=== PATIENT | female | born 1940 | race Caucasian/White ===

== ENCOUNTER 2017-04-09 03:26 | Observation (INO) | payer MEDICARE ==
[~2017-04-09] VITALS: Ht 170.2 cm; Wt 83.9 kg
[~2017-04-09 03:26] MED LIST: ASPIRIN81 M1 PO; CATAPRES0.3 MG PO; FLAGYL500 MG PO; FUROSEMIDE20 MG PO; KLOR-CON 1010 MEQ PO; LEVOTHYROXINE25 MCG PO; MELOXICAM15 MG PO; METOPROLOL SUC100 MG PO; OMEPRAZOLE20 MG PO; VYTORIN 10-201 EACH PO
[2017-04-09] MEDS ORDERED: ALBUTEROL SULF 0.083% NEB SOLN 3 ML NEB NEB STA (03:41)
[2017-04-09] MEDS ORDERED: IPRATROPIUM BROMIDE 0.02% 2.5 ML NEB NEB ONE (03:45)
[2017-04-09 04:09] LABS: BASOPHILS % 0.1 % (0.0-1.0); HEMATOCRIT 39.5 % (34.2-44.1); HEMOGLOBIN 13.8 g/dL (12.0-16.0); LYMPHOCYTES # (AUTO) 0.6 (1.0-3.2); LYMPHOCYTES % 6.5 % (18.0-39.1); MEAN CORPUSCULAR HEMOGLOBIN 30.7 pg (28-32); MEAN CORPUSCULAR HGB CONC 34.9 g/dL (31-35); MEAN CORPUSCULAR VOLUME 87.8 fL (81-99); MONOCYTES # (AUTO) 0.4 (0.2-0.8); MONOCYTES % 4.8 % (4.4-11.3); NEUTROPHILS # (AUTO) 7.6 (2.1-6.9); NEUTROPHILS % 87.8 % (38.7-80.0); PLATELET COUNT 192 x10e3/uL (140-360); RED CELL DISTRIBUTION WIDTH 12.4 % (11.7-14.4)
[2017-04-09 04:17] LABS: INR 0.94
[2017-04-09 04:18] LABS: PARTIAL THROMBOPLASTIN TIME 25.7 seconds (23.8-35.5)
[2017-04-09 04:27] LABS: ALBUMIN 3.3 g/dL (3.5-5.0); ALBUMIN/GLOBULIN RATIO 0.8 (0.8-2.0); ANION GAP 12.5 mmol/L (8-16); CALCIUM 9.5 mg/dL (8.4-10.2); CREATININE, SERUM 1.67 mg/dL (0.57-1.11); MAGNESIUM 1.5 MG/DL (1.3-2.1); POTASSIUM 3.5 mmol/L (3.5-5.1)
[2017-04-09 04:33] LABS: CREATINE KINASE MB 2.8 ng/mL (0.00-5.00); TROPONIN I 0.028 ng/mL (0-0.300)
--- NOTE | 2017-04-09 04:41 | Diagnostic Imaging Report ---
CHEST 2 VIEWS, Technique: CHEST 2 VIEWS Comparison: None Clinical history: Cough, congestion DISCUSSION: Heart/mediastinum: Normal heart size. Prominent central pulmonary arteries which can be seen with pulmonary arterial hypertension. Lungs: Linear right basilar atelectasis/scar. No consolidation or edema. Pleural spaces: No effusion or pneumothorax. IMPRESSION: No acute abnormality Signed by: Dr Manasa Issa MD on 04/09/2017 4:38 AM
[2017-04-09] MEDS ORDERED: METHYLPREDNISOLONE SOD SUCC 125 MG/2ML VIAL IV ONE (05:30)
[2017-04-09] MEDS ORDERED: HYDRALAZINE HCL25 MG PO (05:44)
[2017-04-09] MEDS ORDERED: VITAMIN D35000 UNI1 PO (05:44)
[2017-04-09] MEDS ORDERED: FENOFIBRATE145 MG PO (05:44)
[2017-04-09] MEDS ORDERED: LISINOPRIL40 MG PO (05:44)
[2017-04-09] MEDS ORDERED: PRAVASTATIN SOD20 MG PO (05:44)
[2017-04-09] MEDS ORDERED: ALPRAZOLAM0.25 MG PO (05:44)
[2017-04-09] MEDS ORDERED: DOXAZOSIN MESYLA2 MG PO (05:44)
[2017-04-09] MEDS ORDERED: OMEPRAZOLE40 MG PO (05:44)
[2017-04-09] MEDS: LEVOFLOXACIN 250MG/D5W 50ML 50 ML IV SCH ×2 (05:53→09:00)
[2017-04-09] MEDS: METHYLPREDNISOLONE SOD SUCC 125 MG/2ML VIAL IV SCH ×3 (05:58→23:23)
[2017-04-09] MEDS ORDERED: CLONIDINE HCL 0.1 MG TAB PO ONE (06:00)
[2017-04-09] MEDS ORDERED: NITROGLYCERIN 2% OINT 1 GM PKT TOP ONE (06:00)
[2017-04-09] MEDS ORDERED: ONDANSETRON HCL INJ 2 MG/ML VIAL IV PRN (06:00)
[2017-04-09] MEDS: ALBUTEROL SULF 0.083% NEB SOLN 3 ML NEB NEB SCH ×5 (07:00→23:05)
[2017-04-09] MEDS: IPRATROPIUM BROMIDE 0.02% 2.5 ML NEB NEB SCH ×5 (07:00→23:05)
[2017-04-09 10:00] VITALS: BP 210/100
[2017-04-09] MEDS: FAMOTIDINE 20 MG/2 ML VIAL IV SCH ×2 (10:28→23:23)
[2017-04-09] MEDS: ASPIRIN 81 MG ENTERIC COATED PO SCH (10:28)
[2017-04-09] MEDS: METOPROLOL SUCCINATE 50 MG TAB XL PO SCH (10:56)
[2017-04-09 12:13] VITALS: BP 169/70
[2017-04-09 12:20] LABS: CREATINE KINASE MB 2.6 ng/mL (0.00-5.00); TROPONIN I 0.012 ng/mL (0-0.300)
[2017-04-09 16:21] VITALS: BP 177/70
[2017-04-09] MEDS: DOXAZOSIN MESYLATE 2 MG TAB PO SCH (16:32)
[2017-04-09] MEDS: POTASSIUM CHLORIDE 10 MEQ TABCR PO SCH (16:33)
[2017-04-09] MEDS: CLONIDINE HCL 0.2 MG TAB PO SCH (16:33)
[2017-04-09] MEDS: HYDRALAZINE HCL 100 MG TABLET PO SCH (16:33)
[2017-04-09] MEDS: ENOXAPARIN 30 MG/0.3 ML SYR SC SCH (16:35)
[2017-04-09] MEDS ORDERED: FUROSEMIDE 20 MG TAB PO SCH (17:00)
[2017-04-09] MEDS ORDERED: PANTOPRAZOLE SOD 40 MG TABEC PO SCH (17:00)
[2017-04-09] MEDS: SODIUM CHLORIDE 0.9% 1000ML 1,000 ML IV SCH (18:03)
[2017-04-09 20:00] VITALS: BP 148/85
[2017-04-09] MEDS: PRAVASTATIN 20 MG TAB PO SCH (23:23)
[2017-04-10] VITALS (7 sets, daily range): BP systolic 143–198; BP diastolic 63–92
[2017-04-10] MEDS: SODIUM CHLORIDE 0.9% 1000ML 1,000 ML IV SCH ×2 (04:20→14:45)
--- NOTE | 2017-04-10 05:02 | History and Physical ---
REASON FOR ADMISSION: Cough, congestion, generalized weakness. HPI: This is a 76-year-old female, very poor historian, history of hypothyroidism and hypertension, who comes in with complaints of cough, congestion, and subjective fever since [place]. Patient reports she has been very weak, generalized weakness with inability to do any work. She also reports having this chronic cough and congestion. Patient also reports having some subjective fever, but denies any chest pain, abdominal pain, diarrhea, nausea or vomiting. Patient was seen and evaluated at bedside on the medical floor. Currently doing well with no other issues. Reports having decreased oral intake. REVIEW OF SYSTEMS: Pertinent positive: Decreased oral intake, cough, congestion, subjective fever, and generalized weakness. Pertinent negative: Denies any chest pain, palpitation, nausea, vomiting, diarrhea, dysuria, hematuria, frequency, urgency, lightheadedness, dizziness, abdominal pain, headache, shortness of breath or any other complaints. The rest of the 14-point review of systems have been reviewed with the patient and are negative. ALLERGIES: ROCEPHIN. HOME MEDICATIONS 1. Xanax 0.25 mg daily. 2. Aspirin 81 mg daily. 3. Vitamin D3 5000 units daily. 4. Clonidine 0.3 mg b.i.d. 5. Doxazosin 8 mg p.o. b.i.d. 6. and simvastatin 1 tablet daily. 7. Fenofibrate 160 mg daily. 8. Lasix 20 mg b.i.d. 9. Hydralazine 25 mg b.i.d. 10. Levothyroxine 125 mcg daily. 11. Lisinopril 40 mg daily. 12. Meloxicam 15 mg daily. 13. Metoprolol 100 mg daily. 14. Prilosec 20 mg daily. 15. Pravastatin 20 mg daily. PAST MEDICAL HISTORY: Hyperlipidemia, chronic kidney disease, and hypothyroidism. SURGICAL HISTORY: None. FAMILY HISTORY: Hypertension and diabetes. SOCIAL HISTORY: No drugs, no alcohol. Denies any smoking. Lives with family. Good social support. PHYSICAL EXAMINATION VITAL SIGNS: Temperature is 96.5, pulse 89, respiratory rate 18, blood pressure 169/70, and her pulse ox is 93% on 2 L nasal cannula. GENERAL: Not in acute distress. Alert and oriented times 3. Cooperative on exam. HEENT: Head is normocephalic, atraumatic. Eyes: Pupils equal, round, and reactive to light bilaterally. Extraocular movements intact bilaterally. Throat: No evidence of any erythema or exudate in the posterior pharynx. Has poor dentition. NECK: Supple with good range of motion. PULMONARY: Has decreased breath sounds bilaterally. Some mild crackles and expiratory wheezing. No rhonchi CARDIOVASCULAR: Positive S1 and S2. No murmurs, rubs, or gallops appreciated. ABDOMEN: Soft, nondistended, and nontender on palpation. Bowel sounds are present. MUSCULOSKELETAL: Strength is 5/5 throughout. No evidence of any musculoskeletal deficit on exam. SKIN: Intact. Warm to touch. Good capillary refill. PSYCHIATRIC: Normal affect and mood. EXTREMITIES: No edema. Good range of motion throughout. LAB FINDINGS: White count of 8.6, hemoglobin 13.8, hematocrit 39.5, and platelets of 192,000. Coagulation: PT 13, INR 0.9, PTT 26. Sodium 136, potassium 3.5, chloride 98, bicarb 29, anion gap of 12, BUN is 32, creatinine is 1.67, and glucose is 155. Lactic acid normal 9.3, calcium 9.5, magnesium 1.5. LFTs were normal. Her troponin was negative. Albumin 3.3. Flu was negative. Microbiology, blood cultures pending. IMAGING STUDIES: Chest x-ray was negative. ASSESSMENT AND PLAN 1. Cough and congestion, likely due to acute bronchitis. We will start on steroids, antibiotics, nebulizer treatments. 2. Acute kidney injury. Hold angiotensin-converting enzyme inhibitor and Lasix. Put on intravenous fluids. 3. Hypertension urgency. Resume all home medications and adjust them accordingly. On p.r.n. hydralazine. 4. Generalized weakness. Get physical therapy and occupational therapy evaluation. 5. Prophylaxis will be Lovenox. 6. Fluid, electrolytes, nutrients: Low-dose intravenous fluids. Regular diet. DISPOSITION: Observation. No consultants needed otherwise. Job#: [id number]
[2017-04-10] MEDS: LEVOTHYROXINE SODIUM 125 MCG TAB PO SCH (06:00)
[2017-04-10 07:03] LABS: BASOPHILS % 0.2 % (0.0-1.0); HEMATOCRIT 37.6 % (34.2-44.1); HEMOGLOBIN 13.1 g/dL (12.0-16.0); LYMPHOCYTES # (AUTO) 0.9 (1.0-3.2); LYMPHOCYTES % 9.6 % (18.0-39.1); MEAN CORPUSCULAR HEMOGLOBIN 30.7 pg (28-32); MEAN CORPUSCULAR HGB CONC 34.8 g/dL (31-35); MEAN CORPUSCULAR VOLUME 88.1 fL (81-99); MONOCYTES # (AUTO) 0.8 (0.2-0.8); MONOCYTES % 8.5 % (4.4-11.3); NEUTROPHILS # (AUTO) 7.4 (2.1-6.9); NEUTROPHILS % 81.2 % (38.7-80.0); PLATELET COUNT 200 x10e3/uL (140-360); RED BLOOD COUNT 4.27 x10e6/uL (3.6-5.1); RED CELL DISTRIBUTION WIDTH 12.5 % (11.7-14.4)
[2017-04-10] MEDS: METHYLPREDNISOLONE SOD SUCC 125 MG/2ML VIAL IV SCH ×2 (07:17→15:03)
[2017-04-10 07:29] LABS: ANION GAP 10.5 mmol/L (8-16); CALCIUM 9.9 mg/dL (8.4-10.2); CREATININE, SERUM 1.55 mg/dL (0.57-1.11); POTASSIUM 3.5 mmol/L (3.5-5.1)
[2017-04-10] MEDS: ALBUTEROL SULF 0.083% NEB SOLN 3 ML NEB NEB SCH ×5 (07:30→23:00)
[2017-04-10] MEDS: IPRATROPIUM BROMIDE 0.02% 2.5 ML NEB NEB SCH ×5 (07:30→23:00)
[2017-04-10 07:48] LABS: CHOL/HDL RATIO 2.9 (3.0-3.6)
[2017-04-10] MEDS: GUAIFENESIN/CODEINE 10 ML CUP PO PRN (08:20)
[2017-04-10] MEDS ORDERED: SIMVASTATIN 20 MG TAB PO SCH (09:00)
[2017-04-10] MEDS ORDERED: SIMVASTATIN PO SCH (09:00)
[2017-04-10] MEDS ORDERED: EZETIMIBE PO SCH (09:00)
[2017-04-10] MEDS ORDERED: EZETIMIBE 10 MG TAB PO SCH ×2 (09:00→21:00)
[2017-04-10] MEDS ORDERED: LISINOPRIL 20 MG TAB PO SCH (09:00)
[2017-04-10] MEDS ORDERED: ASPIRIN 81 MG CHEW TAB PO SCH (09:00)
[2017-04-10] MEDS: FENOFIBRATE 160 MG PO SCH (09:00)
[2017-04-10] MEDS: LEVOFLOXACIN 250MG/D5W 50ML 50 ML IV SCH (09:34)
[2017-04-10] MEDS: FAMOTIDINE 20 MG/2 ML VIAL IV SCH ×2 (09:34→21:30)
[2017-04-10] MEDS: ASPIRIN 81 MG ENTERIC COATED PO SCH (09:34)
[2017-04-10] MEDS: DOXAZOSIN MESYLATE 2 MG TAB PO SCH ×2 (09:34→17:35)
[2017-04-10] MEDS: PANTOPRAZOLE SOD 40 MG TABEC PO SCH (09:34)
[2017-04-10] MEDS: ALPRAZOLAM 0.25 MG TAB PO SCH (09:35)
[2017-04-10] MEDS: HYDRALAZINE HCL 100 MG TABLET PO SCH ×2 (09:35→17:35)
[2017-04-10] MEDS: CLONIDINE HCL 0.2 MG TAB PO SCH ×2 (09:35→17:35)
[2017-04-10] MEDS: POTASSIUM CHLORIDE 10 MEQ TABCR PO SCH ×2 (09:35→17:00)
[2017-04-10] MEDS: CHOLECALCIFEROL 1,000 UNIT TAB PO SCH ×2 (09:35→17:00)
[2017-04-10 13:07] LABS: BILIRUBIN,URINE NEGATIVE (NEGATIVE); KETONES,URINE NEGATIVE (NEGATIVE); LEUKOCYTE ESTERASE ,URINE NEGATIVE (NEGATIVE); NITRITE,URINE NEGATIVE (NEGATIVE); PROTEIN,URINE DIPSTICK 2+ (NEGATIVE); URINE UROBILINOGEN 0.2 mg/dL (0.2 - 1)
[2017-04-10 13:29] LABS: RBC,URINE 0-5 /HPF (0-5); WBC,URINE (MAN) 0-5 /HPF (0-5)
[2017-04-10 13:30] LABS: EPITHELIAL CELLS,URINE RARE /LPF; HYALINE CASTS 0-1 (0-1)
[2017-04-10 13:34] LABS: CLARITY,URINE CLEAR (CLEAR); COLOR,URINE YELLOW (YELLOW)
[2017-04-10] MEDS: ENOXAPARIN 30 MG/0.3 ML SYR SC SCH (17:35)
[2017-04-10] MEDS: PRAVASTATIN 20 MG TAB PO SCH (21:30)
[2017-04-10] MEDS: EZETIMIBE 10 MG TAB PO SCH (21:30)
[2017-04-10] MEDS: SIMVASTATIN 20 MG TAB PO SCH (21:30)
[2017-04-10] MEDS: METHYLPREDNISOLONE SOD SUCC 40 MG/ML VIAL IV SCH (22:15)
[2017-04-11] VITALS: BP 200/95
[2017-04-11] MEDS: ALBUTEROL SULF 0.083% NEB SOLN 3 ML NEB NEB SCH ×6 (02:59→23:00)
[2017-04-11] MEDS: IPRATROPIUM BROMIDE 0.02% 2.5 ML NEB NEB SCH ×6 (02:59→23:00)
[2017-04-11 04:00] VITALS: BP 196/81
[2017-04-11] MEDS: HYDRALAZINE HCL 20 MG/ML VIAL IV PRN ×2 (05:31→23:27)
[2017-04-11 06:28] LABS: BASOPHILS % 0.3 % (0.0-1.0); HEMATOCRIT 36.4 % (34.2-44.1); HEMOGLOBIN 12.5 g/dL (12.0-16.0); LYMPHOCYTES # (AUTO) 0.8 (1.0-3.2); LYMPHOCYTES % 13.1 % (18.0-39.1); MEAN CORPUSCULAR HEMOGLOBIN 30.4 pg (28-32); MEAN CORPUSCULAR HGB CONC 34.3 g/dL (31-35); MEAN CORPUSCULAR VOLUME 88.6 fL (81-99); MONOCYTES # (AUTO) 0.4 (0.2-0.8); MONOCYTES % 6.7 % (4.4-11.3); NEUTROPHILS % 78.5 % (38.7-80.0); PLATELET COUNT 192 x10e3/uL (140-360); RED BLOOD COUNT 4.11 x10e6/uL (3.6-5.1); RED CELL DISTRIBUTION WIDTH 12.3 % (11.7-14.4)
[2017-04-11] MEDS: METHYLPREDNISOLONE SOD SUCC 40 MG/ML VIAL IV SCH ×3 (06:34→23:03)
[2017-04-11] MEDS: LEVOTHYROXINE SODIUM 125 MCG TAB PO SCH (06:34)
[2017-04-11 07:06] LABS: ANION GAP 8.9 mmol/L (8-16); CALCIUM 9.2 mg/dL (8.4-10.2); CREATININE, SERUM 1.39 mg/dL (0.57-1.11); POTASSIUM 3.9 mmol/L (3.5-5.1)
[2017-04-11 07:46] VITALS: BP 199/83
[2017-04-11] MEDS: FENOFIBRATE 160 MG PO SCH (09:00)
[2017-04-11] MEDS: PANTOPRAZOLE SOD 40 MG TABEC PO SCH (09:08)
[2017-04-11] MEDS: FAMOTIDINE 20 MG/2 ML VIAL IV SCH ×2 (09:08→21:44)
[2017-04-11] MEDS: LEVOFLOXACIN 250MG/D5W 50ML 50 ML IV SCH (09:08)
[2017-04-11] MEDS: ASPIRIN 81 MG ENTERIC COATED PO SCH (09:08)
[2017-04-11] MEDS: HYDRALAZINE HCL 100 MG TABLET PO SCH ×2 (09:09→17:00)
[2017-04-11] MEDS: CHOLECALCIFEROL 1,000 UNIT TAB PO SCH ×2 (09:09→17:00)
[2017-04-11] MEDS: METOPROLOL SUCCINATE 50 MG TAB XL PO SCH (09:09)
[2017-04-11] MEDS: ALPRAZOLAM 0.25 MG TAB PO SCH (09:09)
[2017-04-11] MEDS: DOXAZOSIN MESYLATE 2 MG TAB PO SCH ×2 (09:09→17:00)
[2017-04-11] MEDS: CLONIDINE HCL 0.2 MG TAB PO SCH ×2 (09:09→17:00)
[2017-04-11] MEDS: POTASSIUM CHLORIDE 10 MEQ TABCR PO SCH ×2 (09:10→17:00)
[2017-04-11 11:46] VITALS: BP 159/75
[2017-04-11] MEDS: ENOXAPARIN 30 MG/0.3 ML SYR SC SCH (17:26)
[2017-04-11] MEDS: SODIUM CHLORIDE 0.9% 1000ML 1,000 ML IV SCH ×2 (18:02→20:20)
[2017-04-11 20:46] VITALS: BP 163/69
[2017-04-11] MEDS: EZETIMIBE 10 MG TAB PO SCH (21:44)
[2017-04-11] MEDS: PRAVASTATIN 20 MG TAB PO SCH (21:44)
[2017-04-11] MEDS: SIMVASTATIN 20 MG TAB PO SCH (21:44)
[2017-04-12] VITALS (7 sets, daily range): BP systolic 133–229; BP diastolic 63–95
--- NOTE | 2017-04-12 00:25 | Discharge Summary ---
FINAL DISCHARGE DIAGNOSES 1. Acute bronchitis. 2. Acute kidney injury secondary to dehydration. 3. Hypertension urgency, resolved. 4. Generalized weakness likely due to underlying viral illness. CONSULTANTS: None. VITAL SIGNS: Temperature 96.8, pulse 60, respiratory rate is 16, blood pressure 159/75. She was saturating 97% on room air. Sodium 137, potassium 3.9, chloride 103, bicarbonate 29, anion gap of 8, BUN is 33, creatinine is 1.39, glucose was 99. LDL 49. Albumin is 3.3. Troponin is negative. BNP was 159. CK 65. White count 6.4, hemoglobin 12.5, hematocrit 36, and platelets of 192,000. Coagulations are normal. Urinalysis was negative. Flu was negative. MICROBIOLOGY: Blood cultures were negative. Urine cultures were negative. IMAGING STUDIES: Chest x-ray showed no acute abnormality. HOSPITAL COURSE: This is a 76-year-old female who came in with underlying cough, congestion and generalized weakness. Patient was admitted and treated for underlying acute bronchitis with antibiotic, neb treatments and steroids. Patient improved throughout the hospital course, and stated that she was doing much better prior to discharge home. She will be discharged on oral Levaquin some inhalers, as well as prednisone taper. Her flu was negative. Blood and urine cultures were negative. Chest x-ray was negative. Blood pressure was elevated, and medications were adjusted accordingly, and will be discharged on clonidine 0.2 mg p.o. t.i.d. instead of b.i.d.. I discussed with her to follow up with her primary care physician in relation to her overall state of health, as well as her blood pressure, and she verbalized understanding. On the day of discharge, vital signs stable, and labs were stable. Patient was seen, evaluated and examined thoroughly on the day of discharge with no other complaints. Patient verbalized understanding and agrees to the plan of care. Follow up accordingly as an outpatient with her primary care physician. DISCHARGE MEDICATIONS: See med reconciliation form includin. Clonidine 0.2 mg 1 tab p.o. t.i.d. 2. Levaquin 500 mg 1 tab p.o. daily for 8 days. 3. ProAir inhaler as well as prednisone taper 10 mg tapered over 12 days to 5 mg. CONDITION: Stable. DISPOSITION: Home. DIET: Heart-healthy. Follow up with her primary care physician in 1 week for post hospital followup. In the event of any worsening symptoms, the patient was advised to come back to the ED for further evaluation. Discharge summary took greater than 35 minutes. ROSANNA PRIDE MD Job#: [id number] [place]AS[place]
[2017-04-12] MEDS: ALBUTEROL SULF 0.083% NEB SOLN 3 ML NEB NEB SCH ×6 (03:00→23:00)
[2017-04-12] MEDS: IPRATROPIUM BROMIDE 0.02% 2.5 ML NEB NEB SCH ×6 (03:00→23:00)
[2017-04-12] MEDS: LEVOTHYROXINE SODIUM 125 MCG TAB PO SCH (05:04)
[2017-04-12] MEDS: METHYLPREDNISOLONE SOD SUCC 40 MG/ML VIAL IV SCH (05:04)
[2017-04-12] MEDS: HYDRALAZINE HCL 20 MG/ML VIAL IV PRN ×2 (05:05→11:20)
[2017-04-12] MEDS: GUAIFENESIN/CODEINE 10 ML CUP PO PRN (05:14)
[2017-04-12] MEDS ORDERED: HYDRALAZINE HC100 MG PO (06:24)
[2017-04-12] MEDS ORDERED: CATAPRES0.2 MG PO (06:24)
[2017-04-12] MEDS ORDERED: NIFEDIPINE ER30 M1 PO (06:24)
[2017-04-12] MEDS ORDERED: Guaifenesin/Codeine PO (06:24)
[2017-04-12] MEDS ORDERED: LEVAQUIN500 MG PO (06:24)
[2017-04-12] MEDS ORDERED: PREDNISONE20 MG PO (06:24)
[2017-04-12] MEDS ORDERED: ASPIRIN EC81 MG PO (06:24)
--- NOTE | 2017-04-12 07:19 | Discharge Summary ---
PRINCIPAL DIAGNOSES 1. Acute bronchitis. 2. Acute kidney injury. 3. Hypertensive urgency. 4. Hyperlipidemia. 5. Physical deconditioning. SECONDARY DIAGNOSIS: Hypertension. CHIEF COMPLAINT: Cough and shortness of breath. HISTORY OF PRESENT ILLNESS: This is a 76-year-old woman developing cough and shortness of breath. For further details, please refer to the H and P. HOSPITAL COURSE: Patient had acute bronchitis and shortness of breath, now she is satting 92% on room air. She remains weak and needs physical therapy at home. She will be discharged with prednisone and Levaquin and antitussive medication. She has been receiving these medications in the hospital in addition to Solu-Medrol. Patient is currently appropriate for discharge. Will follow up her labs later day. DISCHARGE MEDICATIONS: Per electronic medical record. FOLLOWUP: With primary care doctor in 1 week. CONDITION ON DISCHARGE: Stable and improving. DISCHARGE LOCATION: Home with physical therapy. ANA MARIA VIGIL MD Job#: [id number]
[2017-04-12 07:21] LABS: BASOPHILS % 0.5 % (0.0-1.0); HEMOGLOBIN 13.6 g/dL (12.0-16.0); LYMPHOCYTES # (AUTO) 0.7 (1.0-3.2); LYMPHOCYTES % 8.5 % (18.0-39.1); MEAN CORPUSCULAR HEMOGLOBIN 30.5 pg (28-32); MEAN CORPUSCULAR HGB CONC 34.9 g/dL (31-35); MEAN CORPUSCULAR VOLUME 87.4 fL (81-99); MONOCYTES # (AUTO) 0.3 (0.2-0.8); NEUTROPHILS # (AUTO) 6.7 (2.1-6.9); NEUTROPHILS % 82.3 % (38.7-80.0); PLATELET COUNT 242 x10e3/uL (140-360); RED BLOOD COUNT 4.46 x10e6/uL (3.6-5.1); RED CELL DISTRIBUTION WIDTH 12.3 % (11.7-14.4)
[2017-04-12 07:42] LABS: ANION GAP 11.9 mmol/L (8-16); CALCIUM 9.9 mg/dL (8.4-10.2); CREATININE, SERUM 1.47 mg/dL (0.57-1.11); POTASSIUM 3.9 mmol/L (3.5-5.1)
[2017-04-12] MEDS: FAMOTIDINE 20 MG/2 ML VIAL IV SCH (08:03)
[2017-04-12] MEDS: CHOLECALCIFEROL 1,000 UNIT TAB PO SCH ×2 (08:03→17:20)
[2017-04-12] MEDS: ASPIRIN 81 MG ENTERIC COATED PO SCH (08:03)
[2017-04-12] MEDS: ALPRAZOLAM 0.25 MG TAB PO SCH (08:03)
[2017-04-12] MEDS: LEVOFLOXACIN 250MG/D5W 50ML 50 ML IV SCH (08:03)
[2017-04-12] MEDS: FENOFIBRATE 160 MG PO SCH (08:03)
[2017-04-12] MEDS: PANTOPRAZOLE SOD 40 MG TABEC PO SCH (08:03)
[2017-04-12] MEDS: METOPROLOL SUCCINATE 50 MG TAB XL PO SCH (08:04)
[2017-04-12] MEDS: DOXAZOSIN MESYLATE 2 MG TAB PO SCH ×2 (08:04→17:20)
[2017-04-12] MEDS: NIFEDIPINE CR 30 MG TAB PO SCH ×2 (08:04→08:06)
[2017-04-12] MEDS: CLONIDINE HCL 0.2 MG TAB PO SCH ×3 (08:04→17:21)
[2017-04-12] MEDS: SODIUM CHLORIDE 0.9% 1000ML 1,000 ML IV SCH (08:06)
[2017-04-12] MEDS: POTASSIUM CHLORIDE 10 MEQ TABCR PO SCH ×2 (08:07→17:20)
[2017-04-12] MEDS ORDERED: METHYLPREDNISOLONE SOD SUCC 40 MG/ML VIAL IV SCH (09:00)
[2017-04-12] MEDS ORDERED: NIFEDIPINE CR 30 MG TAB PO SCH (09:00)
[2017-04-12] MEDS: ALPRAZOLAM 0.5 MG TAB PO SCH ×2 (11:32→11:56)
[2017-04-12] MEDS ORDERED: HYDRALAZINE HCL 100 MG TABLET PO SCH (14:00)
[2017-04-12] MEDS: ENOXAPARIN 30 MG/0.3 ML SYR SC SCH (17:20)
[2017-04-13] MEDS: ALBUTEROL SULF 0.083% NEB SOLN 3 ML NEB NEB SCH (03:00)
[2017-04-13] MEDS: IPRATROPIUM BROMIDE 0.02% 2.5 ML NEB NEB SCH (03:00)
== END 2017-04-12 20:03 | disposition home or self-care (01) ==
LOC: ER 03:26 → ERHOLD 06:11 → IMCU 08:32
PROVIDERS: ADMIT Internal Medicine; ATTEND Internal Medicine
DX: J20.8 Acute bronchitis due to other specified organisms (principal); R09.02 Hypoxemia; E03.9 Hypothyroidism, unspecified; I16.0 Hypertensive urgency; N17.9 Acute kidney failure, unspecified; R53.1 Weakness; E78.5 Hyperlipidemia, unspecified; R53.81 Other malaise
CPT/HCPCS: 36415 ×4; 71020; 80048 ×3; 80053; 80061; 81001; 82550; 82553; 83605; 83735; 83880; 84484; 85025 ×4; 85610; 85730; 87040; 87086; 87400; 93005; 93306; 97116; 97161; 99284; G0378 ×4; G8978; G8979; J0360 ×2; J1650 ×4; J1956 ×4; J2920 ×3; J2930 ×2; J7030 ×3

== ENCOUNTER → 2017-07-19 | Outpatient (CLI) | payer MEDICARE ==
[~2017-07-19] MED LIST changes: +ALPRAZOLAM0.25 MG PO; +ASPIRIN EC81 MG PO; +CATAPRES0.2 MG PO; +DOXAZOSIN MESYLA2 MG PO; +FENOFIBRATE145 MG PO; +Guaifenesin/Codeine PO; +HYDRALAZINE HC100 MG PO; +HYDRALAZINE HCL25 MG PO; +IOPAMIDOL 370 MG/ML 200 ML INFUS..BTL INJ ONE; +LEVAQUIN500 MG PO; +LISINOPRIL40 MG PO; +NIFEDIPINE ER30 M1 PO; +OMEPRAZOLE40 MG PO; +PRAVASTATIN SOD20 MG PO; +PREDNISONE20 MG PO; +SODIUM CHLORIDE 0.9% 250ML 500 ML ONE; +SODIUM CHLORIDE 0.9% 50ML 50 ML ONE; +VITAMIN D35000 UNI1 PO
[2017-07-19 10:18] LABS: CREATININE, SERUM 1.46 mg/dL (0.57-1.11)
--- NOTE | 2017-07-19 12:31 | Diagnostic Imaging Report ---
EXAM: CT Chest WITH contrast 07/19/2017 9:41 AM INDICATION: \[id number] \S\1113 \S\LEFT PLEURAL EFFUSION / COUGH / WHE COMPARISON: Chest x-ray dated 04/09/2017 TECHNIQUE: Chest was scanned utilizing a multidetector helical scanner from the lung apex through the level of the adrenal glands without administration of IV contrast. Coronal and sagittal reformations were obtained. Routine protocol was performed. IV CONTRAST: 100 mL of Isovue 300 COMPLICATIONS: None RADIATION DOSE: Total DLP: 515.63 mGy*cm Estimated effective dose: (DLP x 0.014 x size factor) mSv CTDIvol has been reviewed. It is below the limits set by the Radiation Protocol Committee (RPC). FINDINGS: LINES/ TUBES: None. LUNGS AND AIRWAYS: Right upper lobe 4 mm subpleural calcified granuloma (series 3, image 14). 4 mm groundglass right upper lobe nodule (3/23). There are also punctate right upper lobe nodules (series 3, images 24 and 30). Lateral right middle lobe focal areas of tree-in-bud opacities (series 3, image 74). Airways are normal. PLEURA: The pleural spaces are clear. HEART AND MEDIASTINUM: The thyroid gland is not visualized. No axillary lymphadenopathy. Prominent mediastinal lymph nodes. For example 0.7 cm right paratracheal or 0.8 cm subcarinal lymph nodes. There are also enlarged hilar lymph nodes. For example 0.8 cm right hilar lymph node. The heart is normal in size.. There is no pericardial effusion. Moderate to severe atherosclerotic disease of coronary arteries. Moderate atherosclerotic disease of thoracic aorta. UPPER ABDOMEN: Partially imaged atrophic right kidney. Nonspecific 1 cm portacaval lymph node. BONES: Degenerative changes of thoracic spine. SOFT TISSUES: Unremarkable. IMPRESSION: No focal consolidation. Mild lateral right middle lobe tree-in-bud opacities, may represent resolving infectious/inflammatory process. Prominent mediastinal and hilar lymph nodes, likely reactive. No pleural effusion. Few subcentimeter right lung nodules. Without risk factors, no follow-up is necessary. With risk factors, follow-up with low-dose chest CT in one year is recommended. Signed by: Dr. Luciano Castanon MD on 07/19/2017 12:27 PM
== END | disposition home or self-care (01) ==
LOC: CT 09:25
PROVIDERS: ATTEND Family Medicine
DX: J90 Pleural effusion, not elsewhere classified (principal); R05 Cough; R06.2 Wheezing; R59.1 Generalized enlarged lymph nodes
CPT/HCPCS: 36415; 71260; 82565; 84520; J7050; Q9967

== ENCOUNTER 2018-03-21 13:20 | Emergency (ER) | payer MEDICARE ==
[~2018-03-21] VITALS: Ht 170.2 cm; Wt 76.7 kg
[~2018-03-21 13:20] MED LIST changes: -IOPAMIDOL 370 MG/ML 200 ML INFUS..BTL INJ ONE; -SODIUM CHLORIDE 0.9% 250ML 500 ML ONE; -SODIUM CHLORIDE 0.9% 50ML 50 ML ONE
--- OUTSIDE RECORDS SUMMARY | 2018-03-21 13:23 | XMS REPORT ---
Author Author [facility] Address Unknown Phone Unavailable Care Team Providers [facility] Name Role Phone MAGDY PRESTON Unavailable Unavailable Luz Maria SUH Unavailable Unavailable Problems This patient has no known problems. Allergies, Adverse Reactions, Alerts This patient has no known allergies or adverse reactions. Medications This patient has no known medications. Results Test Description Test Time Test Comments Text Results Atomic Results Result Comments CT CHEST W [place] [address] Patient Name: VERONICA PIPER MR #: [id number] : 1940 Age/Sex: 77/F Req #: [id number] Adm Physician: Ordered by: MAGDY PRESTON DO Report #: [id number] Location: CT Room/Bed: Procedure: [id number] CT/CT CHEST W Exam Date: 07/19/17 Exam Time: 1113 REPORT STATUS: Signed EXAM: CT Chest WITH contrast 07/19/2017 9:41 AM INDICATION: COMPARISON: Chest x-ray dated 04/09/2017 TECHNIQUE: Chest was scanned utilizing a multidetector helical scanner from the lung apex through the level of the adrenal glands without administration of IV contrast. Coronal and sagittal reformations were obtained. Routine protocol was performed. IV CONTRAST: 100 mL of Isovue 300 COMPLICATIONS: None RADIATION DOSE: Total DLP: 515.63 mGy*cm Estimated effective dose: (DLP x 0.014 x size factor) mSv CTDIvol has been reviewed. It is below the limits set by the Radiation Protocol Committee (RPC). FINDINGS: LINES/ TUBES: None. LUNGS AND AIRWAYS: Right upper lobe 4 mm subpleural calcified granuloma (series 3, image 14). 4 mm groundglass right upper lobe nodule (3/23). There are also punctate right upper lobe nodules (series 3, images 24 and 30). Lateral right middle lobe focal areas of tree-in-bud opacities (series 3, image 74). Airways are normal. PLEURA: The pleural spaces are clear. HEART AND MEDIASTINUM: The thyroid gland is not visualized. No axillary lymphadenopathy. Prominent mediastinal lymph nodes. For example 0.7 cm right paratracheal or 0.8 cm subcarinal lymph nodes. There are also enlarged hilar lymph nodes. For example 0.8 cm right hilar lymph node. The heart is normal in size.. There is no pericardial effusion. Moderate to severe atherosclerotic disease of coronary arteries. Moderate atherosclerotic disease of thoracic aorta. UPPER ABDOMEN: Partially imaged atrophic right kidney. Nonspecific 1 cm portacaval lymph node. BONES: Degenerative changes of thoracic spine. SOFT TISSUES: Unremarkable. IMPRESSION: No focal consolidation. Mild lateral right middle lobe tree-in-bud opacities, may represent resolving infectious/inflammatory process. Prominent mediastinal and hilar lymph nodes, likely reactive. No pleural effusion. Few subcentimeter right lung nodules. Without risk factors, no follow-up is necessary. With risk factors, follow-up with low-dose chest CT in one year is recommended. Signed by: Dr. Luciano Mobley MD on 07/19/2017 12:27 PM Dictated By: LUCIANO MOBLEY MD 1227 Transcribed By: DAVID on 07/19/17 1227 COPY TO: MAGDY PRESTON DO CHEST 2 VIEWS [place] [address] Patient Name: VERONICA PIPER MR #: [id number] : 1940 Age/Sex: 76/F Req #: [id number] Adm Physician: Ordered by: WILLIAM SUH MD Report #: [id number] Location: Room/Bed: Procedure: [id number] DX/CHEST 2 VIEWS Exam Date: 04/09/17 Exam Time: 409 REPORT STATUS: Signed CHEST 2 VIEWS, Technique: CHEST 2 VIEWS Comparison: None Clinical history: Cough, congestion DISCUSSION: Heart/mediastinum: Normal heart size. Prominent central pulmonary arteries which can be seen with pulmonary arterial hypertension. Lungs: Linear right basilar atelectasis/scar. No consolidation or edema. Pleural spaces: No effusion or pneumothorax. IMPRESSION: No acute abnormality Signed by: Dr Shana Issa MD on 04/09/2017 4:38 AM Dictated By: SHANA ISSA MD 7 Transcribed By: DAVID on 04/09/17437 COPY TO: WILLIAM SUH MD
[2018-03-21 20:13] LABS: BASOPHILS % 0.4 % (0.0-1.0); EOSINOPHILS % 0.4 % (0.0-6.0); HEMATOCRIT 35.8 % (34.2-44.1); HEMOGLOBIN 12.1 g/dL (12.0-16.0); LYMPHOCYTES # (AUTO) 0.8 (1.0-3.2); LYMPHOCYTES % 15.7 % (18.0-39.1); MEAN CORPUSCULAR HEMOGLOBIN 30.8 pg (28-32); MEAN CORPUSCULAR HGB CONC 33.8 g/dL (31-35); MEAN CORPUSCULAR VOLUME 91.1 fL (81-99); MONOCYTES # (AUTO) 0.3 (0.2-0.8); MONOCYTES % 6.7 % (4.4-11.3); NEUTROPHILS # (AUTO) 3.8 (2.1-6.9); NEUTROPHILS % 75.4 % (38.7-80.0); PLATELET COUNT 189 x10e3/uL (140-360); RED BLOOD COUNT 3.93 x10e6/uL (3.6-5.1); RED CELL DISTRIBUTION WIDTH 13.4 % (11.7-14.4)
--- NOTE | 2018-03-21 20:17 | Diagnostic Imaging Report ---
EXAMINATION: CHEST 2 VIEWS INDICATION: ^SOB, pleuritic chest pain ^[id number] ^192 COMPARISON: CT chest 07/19/2017 and chest radiograph October 08, 2016 FINDINGS: PA and lateral views TUBES and LINES: None. LUNGS: Lungs are hyperinflated. Lungs are clear. There is no evidence of pneumonia or pulmonary edema. PLEURA: Small right pleural effusion, new since prior CT chest. HEART AND MEDIASTINUM: The cardiomediastinal silhouette is unremarkable. Mild calcifications of the aortic arch. BONES AND SOFT TISSUES: No acute osseous lesion. Soft tissues are unremarkable. UPPER ABDOMEN: No free air under the diaphragm. IMPRESSION: Small right pleural effusion, new since prior exam. No pulmonary edema or consolidations. Etiology is indeterminate. Recommend follow-up chest radiograph in 4-[address] chest for further evaluation. Signed by: Dr. Lupe Cortez M.D. on 03/21/2018 8:14 PM
[2018-03-21 20:29] LABS: ALANINE AMINOTRANSFERASE 11 IU/L (0-55); ALBUMIN 3.2 g/dL (3.5-5.0); ALBUMIN/GLOBULIN RATIO 0.7 (0.8-2.0); ALKALINE PHOSPHATASE 56 IU/L (40-150); ANION GAP 18.3 mmol/L (8-16); BLOOD UREA NITROGEN 34 mg/dL (7-26); BUN/CREATININE RATIO 17 (6-25); CARBON DIOXIDE 23 mmol/L (22-29); CHLORIDE 100 mmol/L (98-107); EST GLOMERULAR FILTRATION RATE 24 ML/MIN (60-); GLUCOSE 164 mg/dL (74-118); POTASSIUM 3.3 mmol/L (3.5-5.1); SODIUM 138 mmol/L (136-145)
== END 2018-03-21 21:57 | disposition home or self-care (01) ==
LOC: ER 13:20
DX: R06.00 Dyspnea, unspecified (principal); R07.89 Other chest pain; J90 Pleural effusion, not elsewhere classified; I10 Essential (primary) hypertension; K21.9 Gastro-esophageal reflux disease without esophagitis; E03.9 Hypothyroidism, unspecified; Z85.89 Personal history of malignant neoplasm of other organs and systems
CPT/HCPCS: 36415; 71046; 80053; 83880; 84484; 85025; 87040; 93005; 99284

== ENCOUNTER → 2018-07-21 | Outpatient (CLI) | payer MEDICARE ==
--- NOTE | 2018-07-21 16:33 | Diagnostic Imaging Report ---
EXAM: CT Chest without contrast INDICATION: Right lung nodules, shortness of breath, chest pain. COMPARISON: CT chest with contrast 07/19/2017 and chest radiograph 03/21/2018. TECHNIQUE: Chest was scanned utilizing a multidetector helical scanner from the lung apex through the level of the adrenal glands without administration of IV contrast. Coronal and sagittal reformations were obtained. Routine protocol was performed. COMPLICATIONS: None RADIATION DOSE: Total DLP: 476.7 mGy*cm Estimated effective dose: (DLP x 0.014 x size factor) mSv Dose modulation, iterative reconstruction, and/or weight based adjustment of the mA/kV was utilized to reduce the radiation dose to as low as reasonably achievable. FINDINGS: LINES/ TUBES: None. LUNGS AND AIRWAYS: Right upper lobe 4 mm calcified granuloma. Unchanged 3 mm right upper lobe groundglass nodule on series 3, image 27 and punctate 1 mm solid nodules in the right upper lobe on images 28 and 32. Unchanged 2 mm groundglass nodule in the right lower lobe on image 52. No evidence of new or enlarging nodule. Improved tree in bud nodules in the right middle lobe. The central airways are patent. No evidence of consolidative pneumonia or pulmonary edema. There is mild mosaic attenuation. PLEURA: Trace bilateral pleural effusions, right greater than left with associated areas of nodular subpleural atelectasis. HEART AND MEDIASTINUM: The thyroid gland is not visualized. No axillary lymphadenopathy. No evidence of mediastinal or hilar lymphadenopathy. Mild cardiomegaly. No pericardial effusion. Extensive atherosclerotic calcifications of the coronary arteries and thoracic aorta. Mitral annular calcifications. UPPER ABDOMEN: Limited noncontrast views of the upper abdomen. There is calcified granuloma in the liver. Extensive atherosclerotic calcifications. Partially visualized adrenal glands and spleen appear unremarkable. BONES: Degenerative changes of thoracic spine. No acute osseous abnormality. No suspicious lytic or blastic lesions. SOFT TISSUES: Unremarkable. IMPRESSION: Trace bilateral pleural effusions, right greater than left, with associated subsegmental atelectasis. Stable small bilateral lung nodules measuring up to 3 mm. In a low risk patient, no further follow-up is required. If there is a risk factor for malignancy, such as smoking, an optional 12 month follow-up chest CT may be considered. Signed by: Dr. Swathi Villa MD on 07/21/2018 4:29 PM
== END ==
LOC: CT 14:23
PROVIDERS: ATTEND Family Medicine
DX: R06.02 Shortness of breath (principal); J90 Pleural effusion, not elsewhere classified; R07.89 Other chest pain; R91.8 Other nonspecific abnormal finding of lung field
CPT/HCPCS: 71250

== ENCOUNTER 2019-01-02 07:50 | Inpatient (IN) | payer MEDICARE ==
[~2019-01-02] VITALS: Ht 170.2 cm; Wt 94.0 kg
[2019-01-02 08:54] LABS: BASOPHILS % 0.5 % (0.0-1.0); EOSINOPHILS % 0.7 % (0.0-6.0); HEMATOCRIT 34.6 % (34.2-44.1); HEMOGLOBIN 11.2 g/dL (12.0-16.0); LYMPHOCYTES # (AUTO) 0.6 (1.0-3.2); LYMPHOCYTES % 9.7 % (18.0-39.1); MEAN CORPUSCULAR HEMOGLOBIN 29.9 pg (28-32); MEAN CORPUSCULAR HGB CONC 32.4 g/dL (31-35); MEAN CORPUSCULAR VOLUME 92.3 fL (81-99); MONOCYTES # (AUTO) 0.4 (0.2-0.8); MONOCYTES % 6.8 % (4.4-11.3); NEUTROPHILS # (AUTO) 4.7 (2.1-6.9); NEUTROPHILS % 81.1 % (38.7-80.0); PLATELET COUNT 194 x10e3/uL (140-360); RED BLOOD COUNT 3.75 x10e6/uL (3.6-5.1); RED CELL DISTRIBUTION WIDTH 14.2 % (11.7-14.4)
[2019-01-02 09:16] LABS: INR 0.86; PROTHROMBIN TIME 12.2 seconds (11.9-14.5)
[2019-01-02 09:27] LABS: ALBUMIN/GLOBULIN RATIO 0.8 (0.8-2.0); ANION GAP 14.4 mmol/L (8-16); CALCIUM 9.9 mg/dL (8.4-10.2); CREATININE, SERUM 1.51 mg/dL (0.57-1.11); POTASSIUM 3.4 mmol/L (3.5-5.1)
[2019-01-02 09:34] LABS: CREATINE KINASE MB 0.3 ng/mL (0-5.0)
[2019-01-02] MEDS ORDERED: PANTOPRAZOLE 40 MG 10ML VIAL IV NR (10:03)
--- NOTE | 2019-01-02 11:02 | NUR ---
dr mckee in room with pt
--- NOTE | 2019-01-02 12:31 | NUR ---
Retrieved patient from the ER via stretcher. Transferred patient to bed. Tele box #1 intact with NSR at 86. Patient has no complaints of pain. Call linn within reach. Bed is low and locked. Let patient know that I will return shortly to complete the admission process. Patient in no distress. Instructed patient to call for assistance.
[2019-01-02 13:23] VITALS: BP 182/74
[2019-01-02 13:34] VITALS: BP 182/74
[2019-01-02] MEDS ORDERED: HYDRALAZINE HCL 100 MG TABLET PO SCH (14:00)
[2019-01-02] MEDS ORDERED: PHENYLEPHRINE HCL 1% 10 MG/ML VIAL ONE (14:11)
[2019-01-02 15:18] LABS: HEMATOCRIT 29.6 % (34.2-44.1); HEMOGLOBIN 9.5 g/dL (12.0-16.0)
[2019-01-02 16:00] VITALS: BP 199/81
[2019-01-02] MEDS: DOXAZOSIN MESYLATE 2 MG TAB PO SCH ×2 (18:16→18:17)
[2019-01-02] MEDS: PANTOPRAZOLE SOD 40 MG TABEC PO SCH (18:16)
[2019-01-02] MEDS: HYDRALAZINE HCL 25 MG TAB PO SCH (18:16)
[2019-01-02] MEDS ORDERED: FOLIC ACID1 MG PO (18:55)
[2019-01-02] MEDS ORDERED: PREDNISONE5 MG PO (18:55)
[2019-01-02] MEDS ORDERED: CLONIDINE HCL0.1 MG PO (18:55)
[2019-01-02] MEDS ORDERED: TYLENOL WITH C1 EACH PO (18:55)
[2019-01-02] MEDS ORDERED: Vitamin C PO (18:55)
[2019-01-02] MEDS ORDERED: D-RIBOSE1 GM PO (18:55)
[2019-01-02] MEDS ORDERED: GEMFIBROZIL600 MG PO (18:55)
[2019-01-02] MEDS ORDERED: VITAMIN B-121000 MCG PO (18:55)
[2019-01-02] MEDS ORDERED: PANTOPRAZOLE SO40 MG PO (18:55)
[2019-01-02] MEDS ORDERED: GLUTATHIONE PO (18:55)
[2019-01-02] MEDS ORDERED: IRBESARTAN150 MG PO (18:55)
--- NOTE | 2019-01-02 19:01 | History and Physical ---
CLINICAL HISTORY: This is a 78-year-old white woman seen in outpatient medical center because of rectal bleeding, requiring hospitalization. This patient has multiple medical problems in the past including previous stroke, taking aspirin a day. There is history of hysterectomy for cancer. There is no previous GI bleeding. On the morning of admission, she awoke with bright red blood per rectum, came to the emergency room, was seen by the emergency room physician. Hemoglobin was 11.2, she was hospitalized, GI consultation was obtained with Dr. Leo Cárdenas. PAST MEDICAL HISTORY: Remarkable for hypertension, hyperlipidemia, chronic kidney disease, and bronchitis. PAST SURGICAL HISTORY: Hysterectomy, bilateral cataract resection, LASIK eye surgery, and partial thyroidectomy. PERSONAL AND SOCIAL HISTORY: She was customer service for 29 years. She denies smoking and drinking. FAMILY HISTORY: 13 years ago and was my patient. She lives with son. MEDICATIONS: At home are alprazolam, aspirin 81 mg per day, Catapres 0.2 mg p.o. q.6 hours, Doxazosin 8 mg p.o. b.i.d., fenofibrate 145 mg daily, hydralazine 100 mg b.i.d., levothyroxine 125 mg per day, nifedipine 60 mg per day, omeprazole 20 mg b.i.d., pravastatin one tablet p.o. at bedtime, and prednisone 20 mg p.o. daily. REVIEW OF SYSTEMS: Noncontributory except for previous CVA. PHYSICAL EXAMINATION: GENERAL: She is alert, coherent. VITAL SIGNS: Stable. CARDIAC: Jugular veins nondistended. S1 and S2 were regular. There are no appreciable murmurs. LUNGS: Clear. ABDOMEN: Soft. Bowel sounds are present. EXTREMITIES: Shows no cyanosis, clubbing, or edema. LABORATORY STUDIES: Hemoglobin 11.2, creatinine 1.5, GFR 33, potassium 3.4, albumin 3.0. CT scan of the chest dating back to July last year was negative with minimal pleural effusion bilaterally right greater than left. IMPRESSION: 1. Rectal bleeding, new onset. 2. History of cerebrovascular accident, treated with aspirin 81 mg per day. 3. Mild anemia. Hemoglobin 11.2. 4. Chronic kidney disease. Creatinine 1.5, GFR 33. 5. Hypokalemia. 6. Mild hypoalbuminemia. 7. History of minimal pleural effusion, right greater than left. 8. Hypothyroidism, status post partial thyroidectomy. 9. Hysterectomy for cancer. 10. Hyperlipidemia. 11. Hypertension. 12. on prednisone. 13. coagulopathy with recent complains of bruising. Current INR is 0.86. GI evaluation by Dr. Leo Cárdenas, she may require endoscopy; because of age and previous CVA her risk is somewhat elevated and this was explained to her, understood. MD PAIGE Wilson/MODL /[id number] cc: DO Leo Celestin MD
--- NOTE | 2019-01-02 19:34 | NUR ---
Spoke with Dr. Turcios regarding patient's home medications. Reassessed medications with him. Orders received and implemented. Patient in nuclear medicine at this time. Dr. Turcios said he would see her tomorrow.
[2019-01-02 20:18] VITALS: BP 148/62
[2019-01-02 21:00] VITALS: BP 163/70
--- NOTE | 2019-01-02 21:30 | NUR ---
Patient is back from GI bleed scan, alert and orient, call light within easy reach, bed alarm activated.
[2019-01-02 21:37] VITALS: BP 163/70
--- NOTE | 2019-01-02 21:38 | Diagnostic Imaging Report ---
Tagged-RBC GI Bleed Study Clinical information: 78-year-old female with blood in stool x 1 day. Discussion: The patient's own red blood cells were labeled with 26 mCi of technetium-99m pertechnetate using the in vitro method (UltraTag). Dynamic images of the abdomen were obtained through 60 minutes. Distribution of tracer activity appears physiologic throughout the abdomen. No abnormal accumulation of tracer is seen within the gastrointestinal lumen. Impression: No scan evidence of active gastrointestinal bleeding at this time. Signed by: Dr. Virginie Wilson M.D. on 01/02/2019 9:34 PM
[2019-01-02] MEDS: CLONIDINE HCL 0.2 MG TAB PO SCH (21:40)
[2019-01-02] MEDS: PRAVASTATIN 20 MG TAB PO SCH (21:40)
[2019-01-02 21:53] LABS: HEMATOCRIT 29.3 % (34.2-44.1); HEMOGLOBIN 9.4 g/dL (12.0-16.0)
[2019-01-03] VITALS (8 sets, daily range): BP systolic 115–192; BP diastolic 47–74
[2019-01-03] MEDS ORDERED: BISACODYL 5 MG TAB EC PO ONE ×4 (02:00→10:00)
--- NOTE | 2019-01-03 02:00 | NUR ---
Dr. Daja Cárdenas seen patient, prepped patient for colonoscopy as ordered
--- NOTE | 2019-01-03 02:20 | NUR ---
spoke to patient re consent, patient wants to wait for her son to come before she signs the consent since the son signs her consents.
[2019-01-03 04:34] LABS: HEMATOCRIT 29.4 % (34.2-44.1); HEMOGLOBIN 9.7 g/dL (12.0-16.0)
[2019-01-03] MEDS ORDERED: CITRATE OF MAGNESIA 300ML BOTTLE PO ONE ×2 (05:00→06:00)
[2019-01-03 06:01] LABS: FERRITIN 81.85 ng/mL (4.63-204.00)
[2019-01-03] MEDS: LEVOTHYROXINE SODIUM 125 MCG TAB PO SCH (06:16)
[2019-01-03 07:20] LABS: FOLATE > 40.0 ng/mL (7.0-15.4)
[2019-01-03] MEDS: HYDRALAZINE HCL 25 MG TAB PO SCH ×2 (08:10→17:00)
[2019-01-03] MEDS: DOXAZOSIN MESYLATE 2 MG TAB PO SCH ×2 (08:10→17:00)
[2019-01-03] MEDS: PANTOPRAZOLE SOD 40 MG TABEC PO SCH ×2 (08:10→16:30)
[2019-01-03] MEDS: NIFEDIPINE CR 30 MG TAB PO SCH (08:10)
[2019-01-03] MEDS: CLONIDINE HCL 0.2 MG TAB PO SCH ×2 (08:10→21:22)
[2019-01-03] MEDS ORDERED: PANTOPRAZOLE 40 MG 10ML VIAL IV SCH (09:00)
[2019-01-03] MEDS ORDERED: ALPRAZOLAM 0.25 MG TAB PO PRN (09:00)
[2019-01-03] MEDS ORDERED: ALPRAZOLAM 0.25 MG TAB PO SCH (09:00)
[2019-01-03] MEDS ORDERED: FENOFIBRATE 145 MG TAB PO SCH (09:00)
[2019-01-03] MEDS ORDERED: ONDANSETRON HCL INJ 2MG/ML 2ML 2 MG/ML VIAL IV PRN (10:00)
[2019-01-03] MEDS ORDERED: POTASSIUM CHLORIDE 20 MEQ TAB CR PO ONE (10:54)
[2019-01-03 12:17] LABS: HEMATOCRIT 28.7 % (34.2-44.1); HEMOGLOBIN 9.2 g/dL (12.0-16.0)
[2019-01-03] MEDS ORDERED: PROPOFOL IV EMULSION 10 MG/ML 50 ML VIAL ONE (14:32)
[2019-01-03] MEDS ORDERED: LIDOCAINE HCL 2% LOCAL INJ 5 ML SDV VIAL INJ ONE (14:32)
[2019-01-03] MEDS ORDERED: MIDAZOLAM HCL 2 MG/2 ML VIAL ONE (15:00)
[2019-01-03 21:16] LABS: HEMATOCRIT 28.8 % (34.2-44.1); HEMOGLOBIN 9.4 g/dL (12.0-16.0)
[2019-01-03] MEDS: PRAVASTATIN 20 MG TAB PO SCH (21:22)
[2019-01-04] VITALS (8 sets, daily range): BP systolic 114–154; BP diastolic 48–59
[2019-01-04] MEDS: ACETAMINOPHEN 325 MG TAB PO PRN (00:20)
--- NOTE | 2019-01-04 02:04 | Operative Report ---
DATE OF PROCEDURE: 01/02/2019 SURGEON: Leo Cárdenas MD PROCEDURE: Colonoscopy with polypectomy. ADDITIONAL REFERRING PHYSICIAN: Jimbo Turcios MD INDICATIONS FOR PROCEDURES: Rectal bleeding. MEDICATIONS: The patient was done under MAC. Please see anesthesiologist's note. PROCEDURE IN DETAIL: With the patient in left lateral decubitus position, a flexible fiberoptic Olympus colonoscope was inserted into the rectum with ease and advanced to the distal sigmoid colon. It could not be advanced any further as the sigmoid colon was sharply angulated and fixed. The scope was then withdrawn and an EGD scope was then introduced into the rectum. With the EGD scope, we were able to negotiate the sigmoid colon and the scope was advanced all the way to the cecum. Some scattered diverticular disease was noted throughout, but it was more prominent in the left colon. The scope was then withdrawn slowly and whatever was visualized was the mucosa overlying the cecum, ascending, transverse, descending, and the sigmoid colon, other than for diverticulosis appeared to be grossly unremarkable. Exam was suboptimal. Approximately 1 cm sessile polyp was noted in the distal rectum that was removed per snare electrocautery. The scope was then retroflexed into the distal rectum and the area around the dentate line was grossly unremarkable. The scope was then straightened out, it was subsequently withdrawn. The patient tolerated procedure well. IMPRESSION: 1. Colonoscopy with EGD scope as sigmoid colon was sharply angulated and fixed. It could not be negotiated with the adult colonoscope. Visualization was suboptimal. 2. Diverticulosis. 3. Rectal polyp approximately 1 cm in size, sessile, removed per snare electrocautery. The patient tolerated procedure well. Most likely, source of gastrointestinal bleeding was diverticular. PLAN: Follow H and H. Followup histology. Initiate full liquid diet. There is no need for a followup colonoscopy in this patient. Leo Cárdenas MD [facility] [place] /[id number] cc: MD Roderick Wilson DO
[2019-01-04 05:33] LABS: BASOPHILS % 0.5 % (0.0-1.0); EOSINOPHILS % 0.4 % (0.0-6.0); HEMOGLOBIN 8.6 g/dL (12.0-16.0); LYMPHOCYTES # (AUTO) 0.8 (1.0-3.2); LYMPHOCYTES % 9.2 % (18.0-39.1); MEAN CORPUSCULAR HEMOGLOBIN 29.7 pg (28-32); MEAN CORPUSCULAR HGB CONC 31.9 g/dL (31-35); MEAN CORPUSCULAR VOLUME 93.1 fL (81-99); MONOCYTES # (AUTO) 0.5 (0.2-0.8); MONOCYTES % 5.9 % (4.4-11.3); NEUTROPHILS % 83.2 % (38.7-80.0); PLATELET COUNT 175 x10e3/uL (140-360); RED CELL DISTRIBUTION WIDTH 14.3 % (11.7-14.4)
[2019-01-04] MEDS: LEVOTHYROXINE SODIUM 125 MCG TAB PO SCH (05:44)
[2019-01-04 05:54] LABS: ALBUMIN 2.6 g/dL (3.5-5.0); ALBUMIN/GLOBULIN RATIO 0.9 (0.8-2.0); CALCIUM 9.9 mg/dL (8.4-10.2); CREATININE, SERUM 2.28 mg/dL (0.57-1.11)
--- NOTE | 2019-01-04 06:45 | NUR ---
rounded with retail shift supervisor nurse, patient aware of change and in no distress. call linn within reach and bed in lowest position.
[2019-01-04] MEDS: CLONIDINE HCL 0.2 MG TAB PO SCH ×2 (08:15→21:00)
[2019-01-04] MEDS: PANTOPRAZOLE SOD 40 MG TABEC PO SCH ×2 (08:15→17:00)
[2019-01-04] MEDS: FERROUS SULFATE 325 MG TAB PO SCH (08:15)
[2019-01-04] MEDS: NIFEDIPINE CR 30 MG TAB PO SCH (08:15)
[2019-01-04] MEDS: HYDRALAZINE HCL 25 MG TAB PO SCH ×2 (08:15→17:00)
[2019-01-04] MEDS: DOXAZOSIN MESYLATE 2 MG TAB PO SCH ×2 (08:15→17:00)
[2019-01-04] MEDS ORDERED: SODIUM CHLORIDE 0.45% 1,000 ML IV SCH (10:30)
[2019-01-04] MEDS: SODIUM CHLORIDE 0.9% 1000ML 1,000 ML IV SCH ×2 (10:45→18:45)
[2019-01-04] MEDS ORDERED: SODIUM CHLORIDE 0.9% 250ML 250 ML IV ONE (11:30)
[2019-01-04 12:14] LABS: HEMOGLOBIN 9.2 g/dL (12.0-16.0)
[2019-01-04 19:14] LABS: HEMATOCRIT 24.9 % (34.2-44.1)
[2019-01-04] MEDS: SODIUM BICARBONATE 650 MG TAB PO SCH (22:03)
[2019-01-04] MEDS: PRAVASTATIN 20 MG TAB PO SCH (22:03)
--- NOTE | 2019-01-04 22:32 | Consultation ---
DATE OF CONSULTATION: 01/04/2019 ID Consult REASON FOR CONSULTATION: Sepsis. Thank you Dr. Turcios for asking me to see this patient. HISTORY OF PRESENT ILLNESS: The patient is a 78-year-old woman, who was referred for sepsis. She was admitted on 01/02/2019 with bright red blood bleeding per rectum. She denies abdominal pain and diarrhea. She was evaluated by Gastroenterology Service and successfully completed colonoscopy and EGD. The patient spiked fever to 101 degrees Fahrenheit last night. She feels cold all the time, which has not changed. She denies cough, shortness of breath, nausea, vomiting, abdominal pain, and dysuria. She did not receive blood or blood product transfusion. However, she has had left elbow peripheral IV since admission. PAST MEDICAL HISTORY: Hypertension, hyperlipidemia, chronic kidney disease, hypothyroidism, and cerebrovascular accident. PAST SURGICAL HISTORY: Bilateral cataract surgery, partial thyroidectomy and hysterectomy for cancer. ALLERGIES: CEFTRIAXONE AND MORPHINE. MEDICATIONS: See JUN. IMMUNIZATION: Influenza, pneumococcal vaccination. Status cannot be verified at this time. FAMILY HISTORY: Noncontributory. SOCIAL HISTORY: No alcohol, tobacco, or recreational drug use. REVIEW OF SYSTEMS: As per history of present illness. The patient has not had additional fevers since last night. She denies cough, shortness of breath, nausea, vomiting, diarrhea, abdominal pain, and dysuria. Also she has not had any more rectal bleeding. PHYSICAL EXAMINATION: GENERAL: No acute distress and does not appear toxic. VITAL SIGNS: T-max 101, pulse rate 80, respiratory rate 18, blood pressure 134/48, weight 170 pounds. HEENT: Normocephalic. There is no icterus or injection of conjunctiva. There is no ear or nasal discharge. Dry oral mucosa. No pharyngeal erythema or exudate. NECK: Supple. No meningismus. LUNGS: Good air entry bilaterally. HEART: Normal S1 and S2. Regular. ABDOMEN: Soft and nontender. EXTREMITIES: There is no edema, clubbing, or cyanosis. SKIN: Old ecchymosis of the upper and lower limbs. INSULATION CUPOLA CHARGER: Awake, alert, oriented. LABORATORY AND DIAGNOSTICS: WBC 8460, hemoglobin 9.2, platelets 175,000, neutrophils 83.2, lymphocytes 9.2, monocytes 5.9, eosinophils 0.4, and basophils 0.5. BUN 25, creatinine 2.28. Blood and urine cultures have been collected. Bleeding scan was negative. IMPRESSION: 1. Fever ? Source unclear. 2. Painless lower gastrointestinal bleed. 3. Anemia from acute gastrointestinal blood loss. 4. Acute kidney injury on chronic kidney disease. 5. Hypothyroidism. 6. Hypertension. 7. Hyperlipidemia. PLAN: 1. Change peripheral IV. 2. Check blood/urine culture results. 3. Continue rehydration. MD VELIA Sanchez/MODL /[id number]
[2019-01-05] VITALS (8 sets, daily range): BP systolic 116–154; BP diastolic 44–65
[2019-01-05] MEDS: ACETAMINOPHEN 325 MG TAB PO PRN ×2 (00:37→17:30)
[2019-01-05 05:21] LABS: BASOPHILS % 0.3 % (0.0-1.0); EOSINOPHILS # (AUTO) 0.1 (0.0-0.4); EOSINOPHILS % 0.9 % (0.0-6.0); HEMATOCRIT 23.7 % (34.2-44.1); HEMOGLOBIN 7.7 g/dL (12.0-16.0); LYMPHOCYTES # (AUTO) 0.8 (1.0-3.2); LYMPHOCYTES % 11.8 % (18.0-39.1); MEAN CORPUSCULAR HEMOGLOBIN 30.2 pg (28-32); MEAN CORPUSCULAR HGB CONC 32.5 g/dL (31-35); MEAN CORPUSCULAR VOLUME 92.9 fL (81-99); MONOCYTES # (AUTO) 0.5 (0.2-0.8); MONOCYTES % 6.7 % (4.4-11.3); NEUTROPHILS # (AUTO) 5.3 (2.1-6.9); NEUTROPHILS % 79.3 % (38.7-80.0); PLATELET COUNT 165 x10e3/uL (140-360); RED BLOOD COUNT 2.55 x10e6/uL (3.6-5.1); RED CELL DISTRIBUTION WIDTH 14.2 % (11.7-14.4)
[2019-01-05 05:40] LABS: ALBUMIN 2.3 g/dL (3.5-5.0); ALBUMIN/GLOBULIN RATIO 0.8 (0.8-2.0); ANION GAP 11.5 mmol/L (8-16); CALCIUM 9.3 mg/dL (8.4-10.2); CREATININE, SERUM 2.24 mg/dL (0.57-1.11); POTASSIUM 3.5 mmol/L (3.5-5.1)
[2019-01-05] MEDS: LEVOTHYROXINE SODIUM 125 MCG TAB PO SCH (05:51)
[2019-01-05] MEDS ORDERED: SODIUM CHLORIDE 0.9% 250ML 250 ML ONE (10:34)
[2019-01-05] MEDS: PANTOPRAZOLE SOD 40 MG TABEC PO SCH ×2 (10:40→17:30)
[2019-01-05] MEDS: IRON SUCROSE 100 MG in SODIUM CHLORIDE 0.9% 100 ML 100 ML IV SCH (10:40)
[2019-01-05] MEDS: CLONIDINE HCL 0.2 MG TAB PO SCH ×2 (10:41→22:08)
[2019-01-05] MEDS: HYDRALAZINE HCL 25 MG TAB PO SCH ×2 (10:41→17:30)
[2019-01-05] MEDS: SODIUM BICARBONATE 650 MG TAB PO SCH (10:41)
[2019-01-05] MEDS: DOXAZOSIN MESYLATE 2 MG TAB PO SCH ×2 (10:41→17:30)
[2019-01-05] MEDS: FERROUS SULFATE 325 MG TAB PO SCH (10:41)
[2019-01-05] MEDS: NIFEDIPINE CR 30 MG TAB PO SCH (10:41)
[2019-01-05] MEDS ORDERED: VANCOMYCIN 1GM/NS 250 ML 250 ML IV ONE (11:00)
[2019-01-05] MEDS ORDERED: POTASSIUM CHLORIDE 20 MEQ TAB CR PO ONE (11:30)
[2019-01-05] MEDS ORDERED: SODIUM BICARBONATE 8.4% INJ 50 ML SYR IV ONE (11:30)
[2019-01-05 12:21] LABS: HEMATOCRIT 24.3 % (34.2-44.1); HEMOGLOBIN 8.1 g/dL (12.0-16.0)
--- NOTE | 2019-01-05 14:39 | NUR ---
IMM letter delivered and explained to pt. She verbalized understanding. Signed copy placed in chart. copy to pt's transition of care folder.
--- NOTE | 2019-01-05 19:15 | NUR ---
Patient received lying in bed. AAO x 3. Patient had no complaints of pain. No signs of respiratory distress. Telemetry rhythm recorded as SR with a heart rate of 92. Fall precautions implemented. Patient instructed to call for assistance when needed. Call light within reach.
[2019-01-05 19:17] LABS: HEMOGLOBIN 7.6 g/dL (12.0-16.0)
[2019-01-05 19:39] LABS: HEMATOCRIT 22.9 % (34.2-44.1)
--- NOTE | 2019-01-05 19:54 | NUR ---
fuel testing technician called with critical lab result of Hematocrit ---22.9. Dr. Jasmina hayward. Awaiting call back.
--- NOTE | 2019-01-05 19:57 | NUR ---
Sr Addendum: 01/05/19 at 1958 by Jean Carlos Smith RN Above note: Wrong entry
--- NOTE | 2019-01-05 19:58 | NUR ---
Dr. Jasmina Turcios returned call. stated to continue to monitor patient. New order received for H & H lab in the morning.
[2019-01-05] MEDS: PRAVASTATIN 20 MG TAB PO SCH (22:09)
[2019-01-06] VITALS: BP 166/68
--- NOTE | 2019-01-06 02:19 | NUR ---
Dr. Jasmina Cárdenas here to see patient. New order received to advance diet from Full liquid to GI soft diet.
[2019-01-06 04:00] VITALS: BP 170/67
[2019-01-06] MEDS: HYDRALAZINE HCL 25 MG TAB PO SCH ×2 (05:06→09:00)
[2019-01-06] MEDS: LEVOTHYROXINE SODIUM 125 MCG TAB PO SCH (05:50)
--- NOTE | 2019-01-06 07:00 | NUR ---
Walking rounds done. Patient resting comfortably. Shift report given to oncoming nurse.
[2019-01-06 07:21] VITALS: BP 151/55
[2019-01-06 09:51] LABS: BASOPHILS % 0.5 % (0.0-1.0); EOSINOPHILS % 0.5 % (0.0-6.0); HEMATOCRIT 24.4 % (34.2-44.1); LYMPHOCYTES # (AUTO) 0.6 (1.0-3.2); LYMPHOCYTES % 13.2 % (18.0-39.1); MEAN CORPUSCULAR HGB CONC 32.8 g/dL (31-35); MEAN CORPUSCULAR VOLUME 91.4 fL (81-99); MONOCYTES # (AUTO) 0.3 (0.2-0.8); MONOCYTES % 6.5 % (4.4-11.3); NEUTROPHILS # (AUTO) 3.3 (2.1-6.9); NEUTROPHILS % 78.6 % (38.7-80.0); PLATELET COUNT 160 x10e3/uL (140-360); RED BLOOD COUNT 2.67 x10e6/uL (3.6-5.1); RED CELL DISTRIBUTION WIDTH 14.6 % (11.7-14.4)
[2019-01-06 10:11] LABS: ALBUMIN 2.2 g/dL (3.5-5.0); ALBUMIN/GLOBULIN RATIO 0.7 (0.8-2.0); CALCIUM 9.5 mg/dL (8.4-10.2); CREATININE, SERUM 1.4 mg/dL (0.57-1.11)
[2019-01-06] MEDS: PANTOPRAZOLE SOD 40 MG TABEC PO SCH (10:41)
[2019-01-06] MEDS: CLONIDINE HCL 0.2 MG TAB PO SCH (10:42)
[2019-01-06] MEDS: NIFEDIPINE CR 30 MG TAB PO SCH (10:42)
[2019-01-06] MEDS: DOXAZOSIN MESYLATE 2 MG TAB PO SCH (10:42)
[2019-01-06] MEDS: FERROUS SULFATE 325 MG TAB PO SCH (10:42)
[2019-01-06 11:32] VITALS: BP 167/82
[2019-01-06 12:03] VITALS: BP 167/82
[2019-01-06] MEDS: IRON SUCROSE 100 MG in SODIUM CHLORIDE 0.9% 100 ML 100 ML IV SCH (13:42)
[2019-01-06] MEDS ORDERED: NIFEDIPINE ER30 M1 PO (13:52)
[2019-01-06] MEDS ORDERED: SODIUM BICARBONATE 650 MG TAB PO NR (14:00)
--- NOTE | 2019-01-06 14:22 | NUR ---
Notified MD Ramirez regarding discharge orders per MD Turcios. No new orders received at this time.
[2019-01-06 15:42] VITALS: BP 146/63
--- NOTE | 2019-01-06 19:32 | Discharge Summary ---
CLINICAL HISTORY: This 78-year-old white woman was admitted via the emergency room because of rectal bleeding. Please refer to my previous dictation concerning details of current illness, past medical history, present, social history, family history, review of systems, physical examination, and initial laboratory studies. HOSPITAL COURSE: The patient was seen in consultation by business office coordinator, Dr. Leo Cárdenas, who did a colonoscopy showing rectal polyp, which was resected. Postprocedure, the patient developed a fever to 101 degrees, progressive anemia. Hemoglobin dropped down to 8.0. However, blood culture, urine cultures were negative. Infectious Disease consultation was obtained, Dr. Leo Ramirez, however, the patient only received one dose of vancomycin, but no further antibiotics. She was acidotic and was given bicarb to correct it. White count was 4000. BUN 22, creatinine 1.4. She is anxious for discharge with approval from Infectious Disease and Gastroenterology. The patient was discharged and followed further as an outpatient basis. She will see Dr. Leo Cárdenas, Dr. Roderick Barraza and Dr. Rommel Guaman in one week. At the time of discharge, her blood pressure remained slightly elevated. We added Procardia 60 mg per day to her drug regimen. DISCHARGE MEDICATIONS: At the time of discharge her medications are Procardia XL 60 mg p.o. daily, levothyroxine 88 mcg per day, alprazolam, Tylenol 3, clonidine, hydralazine, pantoprazole, ondansetron, pravastatin, doxazosin and hydralazine. This patient was found to have iron deficiency and during hospitalization she had received intravenous iron, oral iron that was therefore not prescribed at the time of discharge. She was given activity, diet, medication and followup instructions. DISCHARGE DIAGNOSES: 1. Severe rectal bleeding due to sessile rectal polyps resected with hemoglobin dropping down from 11.2 to 8.0 at the time of discharge. 2. Post endoscopy and biopsy, fever with negative blood culture. Urine culture was contaminated with no leukocytosis and no further fever with Infectious Disease not recommending further antibiotics. 3. Progressive hypertension, satisfactory control with addition of Procardia XL 60 mg per day. 4. Iron deficiency anemia, receiving intravenous iron during the hospitalization. 5. History of cerebrovascular accident, treated with aspirin 81 mg per day. 6. Chronic kidney disease. Creatinine 1.5, GFR 33. 7. Hypokalemia. 8. Metabolic acidosis. 9. Mild hypoalbuminemia. 10. Minimal pleural effusion, right greater than left. 11. Hypothyroidism, status post partial thyroidectomy. 12. History of hysterectomy for cancer. 13. Hyperlipidemia. 14. Arthritis on low-dose prednisone. 15. Recent complains of bruising, but INR was normal without evidence of coagulopathy. MD PAIGE Wilson/MODL /[id number] cc: MD Roderick Nieto DO Maurice E Akuchie, MD
== END 2019-01-06 17:40 | disposition home or self-care (01) | DRG 393 ==
LOC: ER 07:50 → ERHOLD 10:56 → MED/SURG2 12:39 → OBSVTOIN 01-04 12:43
PROVIDERS: ADMIT Internal Medicine Cardiovascular Disease; ATTEND Internal Medicine Cardiovascular Disease
PROC: 0DBP8ZX Excision of Rectum, Via Natural or Artificial Opening Endoscopic, Diagnostic (ICD-10-PCS; principal; 2019-01-02)
DX: K63.5 Polyp of colon (principal); K57.31 Diverticulosis of large intestine without perforation or abscess with bleeding; D62 Acute posthemorrhagic anemia; N17.9 Acute kidney failure, unspecified; E87.2 Acidosis; J90 Pleural effusion, not elsewhere classified; E87.6 Hypokalemia; E88.09 Other disorders of plasma-protein metabolism, not elsewhere classified; I12.9 Hypertensive chronic kidney disease with stage 1 through stage 4 chronic kidney disease, or unspecified chronic kidney disease; N18.3 Chronic kidney disease, stage 3 (moderate); E78.5 Hyperlipidemia, unspecified; E89.0 Postprocedural hypothyroidism; Y83.6 Removal of other organ (partial) (total) as the cause of abnormal reaction of the patient, or of later complication, without mention of misadventure at the time of the procedure; R50.9 Fever, unspecified; M19.90 Unspecified osteoarthritis, unspecified site; Z86.73 Personal history of transient ischemic attack (TIA), and cerebral infarction without residual deficits; Z79.82 Long term (current) use of aspirin; Z79.52 Long term (current) use of systemic steroids
CPT/HCPCS: 36415; 45378; 78278; 80053; 82270; 82550; 82553; 82607; 82728; 82746; 83540; 83605; 84466; 84484; 85014; 85018; 85025; 85045; 85610; 86850; 86900; 86920; 87040; 87086; 88305; 93005; 99284; A9512; G0378; J1756; J2001; J2250; J2370; J2405; J3370; J7030; J7050

== ENCOUNTER → 2019-05-23 | Outpatient (CLI) | payer MEDICARE ==
[~2019-05-23] MED LIST changes: +CLONIDINE HCL0.1 MG PO; +D-RIBOSE1 GM PO; +FOLIC ACID1 MG PO; +GEMFIBROZIL600 MG PO; +GLUTATHIONE PO; +IRBESARTAN150 MG PO; +PANTOPRAZOLE SO40 MG PO; +PREDNISONE5 MG PO; +TYLENOL WITH C1 EACH PO; +VITAMIN B-121000 MCG PO; +Vitamin C PO
== END ==
LOC: CARD 13:15
PROVIDERS: ATTEND Family Medicine
DX: R09.89 Other specified symptoms and signs involving the circulatory and respiratory systems (principal)
CPT/HCPCS: 93880

== ENCOUNTER 2020-06-13 01:32 | Inpatient (IN) | payer MEDICARE, OTHER ==
[~2020-06-13] VITALS: Ht 170.2 cm; Wt 93.9 kg
[2020-06-13] VITALS (16 sets, daily range): BP systolic 108–153; BP diastolic 42–73
[2020-06-13] MEDS ORDERED: ONDANSETRON HCL INJ 2MG/ML 2ML 2 MG/ML VIAL IV STA (01:49)
[2020-06-13] MEDS ORDERED: MORPHINE SULFATE INJ 4 MG/ML INJ 1ML IV PRN (02:00)
[2020-06-13 02:06] LABS: BASOPHILS % 0.3 % (0.0-1.0); EOSINOPHILS % 0.1 % (0.0-6.0); HEMATOCRIT 36.6 % (34.2-44.1); HEMOGLOBIN 12.1 g/dL (12.0-16.0); LYMPHOCYTES # (AUTO) 1.1 (1.0-3.2); LYMPHOCYTES % 8.5 % (18.0-39.1); MEAN CORPUSCULAR HEMOGLOBIN 32.5 pg (28-32); MEAN CORPUSCULAR HGB CONC 33.1 g/dL (31-35); MEAN CORPUSCULAR VOLUME 98.4 fL (81-99); MONOCYTES # (AUTO) 0.8 (0.2-0.8); MONOCYTES % 6.2 % (4.4-11.3); NEUTROPHILS % 84.3 % (38.7-80.0); PLATELET COUNT 174 x10e3/uL (140-360); RED BLOOD COUNT 3.72 x10e6/uL (3.6-5.1); RED CELL DISTRIBUTION WIDTH 12.7 % (11.7-14.4)
[2020-06-13] MEDS ORDERED: FENTANYL CITRATE/PF 100MCG/2 ML INJ IV ONE (02:15)
[2020-06-13 02:20] LABS: CLARITY,URINE CLOUDY (CLEAR); COLOR,URINE YELLOW (YELLOW); KETONES,URINE NEGATIVE (NEGATIVE); LEUKOCYTE ESTERASE ,URINE NEGATIVE (NEGATIVE); NITRITE,URINE NEGATIVE (NEGATIVE); PROTEIN,URINE DIPSTICK 2+ (NEGATIVE); URINE UROBILINOGEN 0.2 mg/dL (0.2 - 1)
[2020-06-13 02:25] LABS: ALBUMIN 2.9 g/dL (3.5-5.0); ALBUMIN/GLOBULIN RATIO 0.8 (0.8-2.0); ANION GAP 17.4 mmol/L (8-16); CALCIUM 9.6 mg/dL (8.4-10.2); CREATININE, SERUM 1.86 mg/dL (0.57-1.11); POTASSIUM 3.4 mmol/L (3.5-5.1)
[2020-06-13 02:28] LABS: B-TYPE NATRIURETIC PEPTIDE2 139.2 pg/mL (0-100)
[2020-06-13 02:29] LABS: AMORPHOUS SEDIMENT,URINE MANY (FEW); BACTERIA,URINE FEW /HPF; EPITHELIAL CELLS,URINE MODERATE /LPF; RBC,URINE 0-5 /HPF (0-5); WBC,URINE (MAN) 0-5 /HPF (0-5)
[2020-06-13 02:31] LABS: CREATINE KINASE MB 0.2 ng/mL (0-5.0)
[2020-06-13] MEDS ORDERED: PIPERACILLIN/TAZOBAC 3.375 GM in SODIUM CHLORIDE 0.9% 50ML 50 ML IV STA (03:55)
[2020-06-13] MEDS ORDERED: ONDANSETRON HCL INJ 2MG/ML 2ML 2 MG/ML VIAL IV PRN (04:00)
[2020-06-13] MEDS ORDERED: METRONIDAZOLE 500MG/NS 100ML 100 ML IV STA (04:02)
[2020-06-13] MEDS: SODIUM CHLORIDE 0.9% 1000ML 1,000 ML IV SCH ×2 (04:25→12:00)
[2020-06-13] MEDS ORDERED: SODIUM CHLORIDE 0.9% 50ML 50 ML ONE ×4 (05:54→22:55)
[2020-06-13] MEDS ORDERED: PIPERACILLIN/TAZOBAC 3.375 GM VIAL ONE ×4 (05:54→22:54)
[2020-06-13] MEDS: HYDROMORPHONE 1MG/1ML INJ IV PRN (07:57)
[2020-06-13] MEDS ORDERED: FENTANYL CITRATE/PF 100MCG/2 ML INJ ONE (11:57)
[2020-06-13] MEDS: METRONIDAZOLE 500MG/NS 100ML 100 ML IV SCH ×2 (13:00→22:48)
[2020-06-13] MEDS ORDERED: NEOSTIGMINE 1 MG/ML 10ML VIAL ONE (13:09)
[2020-06-13] MEDS ORDERED: HYDRALAZINE HCL 20 MG/ML VIAL ONE (13:09)
[2020-06-13] MEDS ORDERED: SEVOFLURANE INHAL SOLN 250 ML PEN BTL ONE (13:09)
[2020-06-13] MEDS ORDERED: LIDOCAINE HCL 2% LOCAL INJ 5 ML SDV VIAL INJ ONE (13:09)
[2020-06-13] MEDS ORDERED: GLYCOPYRROLATE INJ 0.2 MG/ML VIAL ONE (13:09)
[2020-06-13] MEDS ORDERED: ROCURONIUM BROMIDE 10 MG/ML 5ML VIAL IV ONE ×2 (13:09)
[2020-06-13] MEDS ORDERED: PROPOFOL IV EMULSION 10 MG/ML 20 ML VIAL ONE (13:09)
[2020-06-13] MEDS ORDERED: ACETAMINOPHEN 1000 MG/100 ML 100 ML IV ONE (13:38)
[2020-06-13] MEDS ORDERED: PIPER-TAZ 3.375 GM 50 ML IV SCH (14:00)
[2020-06-13] MEDS: SODIUM CHLORIDE 0.9% 250ML IRRIG IR SCH ×2 (17:47→22:48)
[2020-06-13] MEDS: PROPOFOL IV EMULSION 10MG/ML 100 ML IV SCH (18:07)
[2020-06-13] MEDS: PIPERACILLIN/TAZOBAC 3.375 GM in SODIUM CHLORIDE 0.9% 50ML 50 ML IV SCH (18:07)
[2020-06-13 20:33] LABS: ABG HCO3 19 mmol/L (22-26); ABG PCO2 45 mmHg (35-45); ABG PH 7.23 (7.35-7.45); ABG PO2 224 mmHg (80-105); ABG TCO2 20
[2020-06-13 21:57] LABS: BASOPHILS % 0.2 % (0.0-1.0); HEMATOCRIT 39.3 % (34.2-44.1); HEMOGLOBIN 12.5 g/dL (12.0-16.0); LYMPHOCYTES # (AUTO) 0.8 (1.0-3.2); LYMPHOCYTES % 5.4 % (18.0-39.1); MEAN CORPUSCULAR HGB CONC 31.8 g/dL (31-35); MEAN CORPUSCULAR VOLUME 100.5 fL (81-99); MONOCYTES # (AUTO) 0.7 (0.2-0.8); MONOCYTES % 4.7 % (4.4-11.3); NEUTROPHILS # (AUTO) 12.9 (2.1-6.9); NEUTROPHILS % 88.9 % (38.7-80.0); PLATELET COUNT 152 x10e3/uL (140-360); RED BLOOD COUNT 3.91 x10e6/uL (3.6-5.1); RED CELL DISTRIBUTION WIDTH 13.3 % (11.7-14.4)
[2020-06-13 22:16] LABS: ANION GAP 18.1 mmol/L (8-16); CREATININE, SERUM 1.8 mg/dL (0.57-1.11); POTASSIUM 4.1 mmol/L (3.5-5.1)
[2020-06-13] MEDS: LACTATED RINGER'S 1,000 ML INJ SCH (22:49)
[2020-06-13] MEDS ORDERED: LACTATED RINGER'S 1,000 ML ONE (22:54)
[2020-06-13 22:58] LABS: ABG HCO3 17 mmol/L (22-26); ABG PCO2 35 mmHg (35-45); ABG PH 7.29 (7.35-7.45); ABG PO2 160 mmHg (80-105); ABG TCO2 18
[2020-06-14] VITALS (25 sets, daily range): BP systolic 125–190; BP diastolic 44–60
[2020-06-14] MEDS: PIPERACILLIN/TAZOBAC 3.375 GM in SODIUM CHLORIDE 0.9% 50ML 50 ML IV SCH ×4 (00:24→17:06)
[2020-06-14] MEDS: PROPOFOL IV EMULSION 10MG/ML 100 ML IV SCH ×2 (00:30→05:30)
[2020-06-14] MEDS: SODIUM CHLORIDE 0.9% 250ML IRRIG IR SCH ×6 (01:30→21:38)
[2020-06-14] MEDS ORDERED: PIPERACILLIN/TAZOBAC 3.375 GM VIAL ONE ×2 (05:19→12:03)
[2020-06-14] MEDS ORDERED: SODIUM CHLORIDE 0.9% 50ML 50 ML ONE ×2 (05:20→12:03)
[2020-06-14] MEDS: METRONIDAZOLE 500MG/NS 100ML 100 ML IV SCH ×3 (05:29→20:43)
[2020-06-14 05:33] LABS: BASOPHILS # (AUTO) 0.1 (0.0-0.1); BASOPHILS % 0.4 % (0.0-1.0); EOSINOPHILS # (AUTO) 0.1 (0.0-0.4); EOSINOPHILS % 1.1 % (0.0-6.0); HEMOGLOBIN 12.3 g/dL (12.0-16.0); LYMPHOCYTES # (AUTO) 0.7 (1.0-3.2); LYMPHOCYTES % 5.3 % (18.0-39.1); MEAN CORPUSCULAR HEMOGLOBIN 32.4 pg (28-32); MEAN CORPUSCULAR HGB CONC 32.4 g/dL (31-35); MONOCYTES # (AUTO) 0.6 (0.2-0.8); MONOCYTES % 4.7 % (4.4-11.3); NEUTROPHILS # (AUTO) 10.7 (2.1-6.9); NEUTROPHILS % 87.7 % (38.7-80.0); PLATELET COUNT 156 x10e3/uL (140-360); RED CELL DISTRIBUTION WIDTH 13.5 % (11.7-14.4)
[2020-06-14 05:57] LABS: ALBUMIN/GLOBULIN RATIO 0.6 (0.8-2.0); ANION GAP 19.6 mmol/L (8-16); CALCIUM 7.8 mg/dL (8.4-10.2); CREATININE, SERUM 1.95 mg/dL (0.57-1.11); POTASSIUM 3.6 mmol/L (3.5-5.1)
[2020-06-14] MEDS: BALSAM PERU/CASTOR OIL 60 GM OINT...G. TP SCH (08:08)
[2020-06-14] MEDS: PANTOPRAZOLE 40 MG 10ML VIAL IV SCH (08:08)
[2020-06-14 08:59] LABS: ABG HCO3 21 mmol/L (22-26); ABG PCO2 41 mmHg (35-45); ABG PH 7.33 (7.35-7.45); ABG PO2 74 mmHg (80-105); ABG TCO2 23
[2020-06-14] MEDS ORDERED: BALSAM PERU/CASTOR OIL 60 GM OINT...G. TP SCH (09:00)
[2020-06-14] MEDS: HYDRALAZINE HCL 20 MG/ML VIAL IV PRN (09:12)
[2020-06-14] MEDS: FAMOTIDINE 20 MG/2 ML VIAL IV SCH ×2 (09:15→20:43)
[2020-06-14] MEDS ORDERED: HYDRALAZINE HCL 20 MG/ML VIAL IV PRN (09:15)
[2020-06-14 09:52] LABS: ABG HCO3 18 mmol/L (22-26); ABG PCO2 34 mmHg (35-45); ABG PH 7.34 (7.35-7.45); ABG PO2 90 mmHg (80-105); ABG TCO2 19
[2020-06-14] MEDS: HYDROMORPHONE 1MG/1ML INJ IV PRN ×3 (10:52→22:05)
[2020-06-14] MEDS: LACTATED RINGER'S 1,000 ML INJ SCH (10:59)
[2020-06-14] MEDS: SODIUM BICARBONATE 8.4% 75 ML in SODIUM CHLORIDE 0.45% 1,000 ML IV SCH ×2 (14:56→23:45)
[2020-06-14] MEDS ORDERED: CLONIDINE HCL 0.2 MG/24 HR 1 EA PATCH TOP SCH (22:00)
[2020-06-14] MEDS ORDERED: AMIODARONE HCL 100 ML IV ONE (23:23)
[2020-06-14] MEDS ORDERED: AMIODARONE 900MG 500 ML IV ONE (23:24)
[2020-06-15] VITALS (26 sets, daily range): BP systolic 112–151; BP diastolic 41–88
[2020-06-15] MEDS ORDERED: AMIODARONE HCL 150MG 100 ML IV ONE (00:25)
[2020-06-15] MEDS: AMIODARONE HCL 900 MG in DEXTROSE 5% 500ML 500 ML IV SCH (00:45)
[2020-06-15] MEDS: SODIUM CHLORIDE 0.9% 250ML IRRIG IR SCH ×6 (01:30→21:30)
[2020-06-15] MEDS: PIPERACILLIN/TAZOBAC 3.375 GM in SODIUM CHLORIDE 0.9% 50ML 50 ML IV SCH ×4 (03:15→17:33)
[2020-06-15] MEDS: HYDROMORPHONE 1MG/1ML INJ IV PRN ×4 (04:31→21:41)
[2020-06-15] MEDS: METRONIDAZOLE 500MG/NS 100ML 100 ML IV SCH ×3 (05:00→21:30)
[2020-06-15 05:52] LABS: BASOPHILS % 0.1 % (0.0-1.0); EOSINOPHILS % 0.4 % (0.0-6.0); HEMATOCRIT 31.8 % (34.2-44.1); HEMOGLOBIN 10.4 g/dL (12.0-16.0); LYMPHOCYTES # (AUTO) 0.6 (1.0-3.2); LYMPHOCYTES % 7.4 % (18.0-39.1); MEAN CORPUSCULAR HEMOGLOBIN 32.2 pg (28-32); MEAN CORPUSCULAR HGB CONC 32.7 g/dL (31-35); MEAN CORPUSCULAR VOLUME 98.5 fL (81-99); MONOCYTES # (AUTO) 0.6 (0.2-0.8); MONOCYTES % 7.7 % (4.4-11.3); NEUTROPHILS # (AUTO) 6.3 (2.1-6.9); NEUTROPHILS % 83.7 % (38.7-80.0); PLATELET COUNT 140 x10e3/uL (140-360); RED BLOOD COUNT 3.23 x10e6/uL (3.6-5.1); RED CELL DISTRIBUTION WIDTH 13.4 % (11.7-14.4)
[2020-06-15] MEDS: LEVOTHYROXINE SODIUM 100 MCG/VIAL IV SCH (06:15)
[2020-06-15] MEDS: BALSAM PERU/CASTOR OIL 60 GM OINT...G. TP SCH (08:12)
[2020-06-15] MEDS: PANTOPRAZOLE 40 MG 10ML VIAL IV SCH (08:12)
[2020-06-15] MEDS: FAMOTIDINE 20 MG/2 ML VIAL IV SCH ×2 (09:00→21:30)
[2020-06-15 10:21] LABS: ALBUMIN 1.9 g/dL (3.5-5.0); ALBUMIN/GLOBULIN RATIO 0.6 (0.8-2.0); CALCIUM 7.9 mg/dL (8.4-10.2); CREATININE, SERUM 1.86 mg/dL (0.57-1.11)
[2020-06-15] MEDS ORDERED: PIPERACILLIN/TAZOBAC 3.375 GM VIAL ONE ×3 (10:37→23:06)
[2020-06-15] MEDS ORDERED: SODIUM CHLORIDE 0.9% 50ML 50 ML ONE ×3 (10:37→23:06)
[2020-06-15] MEDS: SODIUM BICARBONATE 8.4% 75 ML in SODIUM CHLORIDE 0.45% 1,000 ML IV SCH ×2 (11:52→21:30)
[2020-06-15] MEDS ORDERED: POTASSIUM CHLORIDE 20MEQ/100ML IVPB INJ ONE (17:15)
[2020-06-15] MEDS: CALCIUM GLUCONATE 10% INJ 4.65 MEQ in SODIUM CHLORIDE 0.9% 50ML 50 ML IV SCH ×2 (17:57→18:41)
[2020-06-15] MEDS: PROPOFOL IV EMULSION 10MG/ML 100 ML IV SCH (18:15)
[2020-06-15] MEDS ORDERED: AMIODARONE 900MG 500 ML IV ONE (20:45)
[2020-06-16] VITALS (26 sets, daily range): BP systolic 107–161; BP diastolic 47–84
[2020-06-16] MEDS: PIPERACILLIN/TAZOBAC 3.375 GM in SODIUM CHLORIDE 0.9% 50ML 50 ML IV SCH ×4 (00:11→18:00)
[2020-06-16] MEDS: AMIODARONE HCL 900 MG in DEXTROSE 5% 500ML 500 ML IV SCH (00:11)
[2020-06-16] MEDS: SODIUM CHLORIDE 0.9% 250ML IRRIG IR SCH ×6 (01:30→20:35)
[2020-06-16] MEDS ORDERED: PIPERACILLIN/TAZOBAC 3.375 GM VIAL ONE ×4 (04:18→23:59)
[2020-06-16] MEDS ORDERED: SODIUM CHLORIDE 0.9% 50ML 50 ML ONE (04:19)
[2020-06-16] MEDS: HYDROMORPHONE 1MG/1ML INJ IV PRN ×3 (05:11→15:50)
[2020-06-16] MEDS: METRONIDAZOLE 500MG/NS 100ML 100 ML IV SCH ×3 (05:17→20:35)
[2020-06-16 05:19] LABS: BASOPHILS % 0.3 % (0.0-1.0); EOSINOPHILS % 0.5 % (0.0-6.0); HEMATOCRIT 29.6 % (34.2-44.1); HEMOGLOBIN 9.5 g/dL (12.0-16.0); LYMPHOCYTES # (AUTO) 0.5 (1.0-3.2); LYMPHOCYTES % 6.2 % (18.0-39.1); MEAN CORPUSCULAR HGB CONC 32.1 g/dL (31-35); MEAN CORPUSCULAR VOLUME 99.7 fL (81-99); MONOCYTES # (AUTO) 0.6 (0.2-0.8); MONOCYTES % 8.3 % (4.4-11.3); NEUTROPHILS # (AUTO) 6.2 (2.1-6.9); PLATELET COUNT 140 x10e3/uL (140-360); RED BLOOD COUNT 2.97 x10e6/uL (3.6-5.1); RED CELL DISTRIBUTION WIDTH 13.2 % (11.7-14.4)
[2020-06-16 05:42] LABS: ANION GAP 16.1 mmol/L (8-16); CALCIUM 8.3 mg/dL (8.4-10.2); CREATININE, SERUM 1.75 mg/dL (0.57-1.11); POTASSIUM 3.1 mmol/L (3.5-5.1)
[2020-06-16 05:50] LABS: THYROID STIMULATING HORMONE 1.555 uIU/mL (0.350-4.940)
[2020-06-16] MEDS: LEVOTHYROXINE SODIUM 100 MCG/VIAL IV SCH (05:58)
[2020-06-16] MEDS: SODIUM BICARBONATE 8.4% 75 ML in SODIUM CHLORIDE 0.45% 1,000 ML IV SCH ×3 (08:05→22:00)
[2020-06-16] MEDS: BALSAM PERU/CASTOR OIL 60 GM OINT...G. TP SCH (09:00)
[2020-06-16] MEDS ORDERED: POTASSIUM CHLORIDE 10MEQ/100ML 300 ML IV ONE (09:00)
[2020-06-16] MEDS ORDERED: POTASSIUM CHLORIDE 20 MEQ TAB CR PO ONE (09:30)
[2020-06-16] MEDS ORDERED: SODIUM CHLORIDE 0.9% 100 ML ONE ×2 (10:11→18:06)
[2020-06-16] MEDS: FAMOTIDINE 20 MG/2 ML VIAL IV SCH ×2 (10:15→20:35)
[2020-06-16] MEDS: PANTOPRAZOLE 40 MG 10ML VIAL IV SCH (10:15)
[2020-06-16] MEDS ORDERED: LEVALBUTEROL HCL SOLN NEBU 1.25 MG/3 ML NEB INH ONE (10:45)
[2020-06-16] MEDS ORDERED: ACETAMINOPHEN 325 MG/10 ML UDC ONE (12:36)
[2020-06-16] MEDS: LEVALBUTEROL HCL SOLN NEBU 1.25 MG/3 ML NEB INH SCH ×2 (15:25→19:35)
[2020-06-16] MEDS: METOPROLOL SUCCINATE 25 MG TAB XL PO SCH (17:00)
[2020-06-16] MEDS: ACETAMINOPHEN 325 MG/10 ML UDC NG PRN (20:36)
[2020-06-17] VITALS (18 sets, daily range): BP systolic 118–178; BP diastolic 55–125
[2020-06-17] MEDS ORDERED: SODIUM CHLORIDE 0.9% 50ML 100 ML ONE (00:02)
[2020-06-17] MEDS ORDERED: PIPERACILLIN/TAZOBAC 3.375 GM VIAL ONE ×4 (00:02→23:53)
[2020-06-17] MEDS: SODIUM CHLORIDE 0.9% 250ML IRRIG IR SCH ×3 (00:21→09:14)
[2020-06-17] MEDS: PIPERACILLIN/TAZOBAC 3.375 GM in SODIUM CHLORIDE 0.9% 50ML 50 ML IV SCH ×4 (00:21→17:05)
[2020-06-17] MEDS: LEVALBUTEROL HCL SOLN NEBU 1.25 MG/3 ML NEB INH SCH ×4 (01:30→19:00)
[2020-06-17] MEDS: ACETAMINOPHEN 325 MG/10 ML UDC NG PRN (02:00)
[2020-06-17] MEDS: METRONIDAZOLE 500MG/NS 100ML 100 ML IV SCH ×3 (05:05→21:07)
[2020-06-17 05:45] LABS: BASOPHILS % 0.3 % (0.0-1.0); EOSINOPHILS % 0.5 % (0.0-6.0); HEMATOCRIT 28.2 % (34.2-44.1); LYMPHOCYTES # (AUTO) 0.4 (1.0-3.2); LYMPHOCYTES % 5.3 % (18.0-39.1); MEAN CORPUSCULAR HEMOGLOBIN 31.1 pg (28-32); MEAN CORPUSCULAR HGB CONC 31.9 g/dL (31-35); MEAN CORPUSCULAR VOLUME 97.6 fL (81-99); MONOCYTES # (AUTO) 0.6 (0.2-0.8); MONOCYTES % 7.5 % (4.4-11.3); NEUTROPHILS # (AUTO) 6.3 (2.1-6.9); PLATELET COUNT 136 x10e3/uL (140-360); RED BLOOD COUNT 2.89 x10e6/uL (3.6-5.1); RED CELL DISTRIBUTION WIDTH 13.1 % (11.7-14.4)
[2020-06-17 06:02] LABS: ALBUMIN 1.9 g/dL (3.5-5.0); ALBUMIN/GLOBULIN RATIO 0.7 (0.8-2.0); ANION GAP 16.8 mmol/L (8-16); CALCIUM 8.3 mg/dL (8.4-10.2); CREATININE, SERUM 1.62 mg/dL (0.57-1.11); MAGNESIUM 1.5 MG/DL (1.3-2.1)
[2020-06-17 06:05] LABS: POTASSIUM 2.8 mmol/L (3.5-5.1)
[2020-06-17] MEDS: HYDROCODONE BIT/ACETAMINOPHEN 2.5 MG/108MG PER 5 ML SOLUTION JT PRN ×2 (06:31→10:45)
[2020-06-17] MEDS: LEVOTHYROXINE SODIUM 100 MCG/VIAL IV SCH (06:31)
[2020-06-17] MEDS ORDERED: KCL 20 MEQ PACKET/ ORAL SOLN NG ONE (07:30)
[2020-06-17] MEDS: POTASSIUM CHLORIDE 20MEQ/100ML 100 ML IV SCH ×3 (07:34→11:42)
[2020-06-17] MEDS: PANTOPRAZOLE 40 MG 10ML VIAL IV SCH (07:35)
[2020-06-17] MEDS: METOPROLOL SUCCINATE 25 MG TAB XL PO SCH (07:35)
[2020-06-17] MEDS: BALSAM PERU/CASTOR OIL 60 GM OINT...G. TP SCH (07:35)
[2020-06-17] MEDS: FAMOTIDINE 20 MG/2 ML VIAL IV SCH (07:35)
[2020-06-17] MEDS: HYDRALAZINE HCL 20 MG/ML VIAL IV PRN ×2 (08:11→13:46)
[2020-06-17] MEDS: SODIUM BICARBONATE 8.4% 75 ML in SODIUM CHLORIDE 0.45% 1,000 ML IV SCH (08:16)
[2020-06-17] MEDS ORDERED: SODIUM CHLORIDE 0.9% 50ML 50 ML ONE ×3 (10:14→23:54)
[2020-06-17] MEDS ORDERED: MAGNESIUM SULFATE 2GM/50ML 50 ML IV ONE (10:30)
[2020-06-17] MEDS: DEXTROSE 5%/0.45% SOD CHL 1,000 ML IV SCH ×2 (10:40→22:25)
[2020-06-17] MEDS ORDERED: POTASSIUM PHOSPHATE 15 MM in SODIUM CHLORIDE 0.9% 250ML 250 ML IV ONE (11:00)
[2020-06-17] MEDS ORDERED: HYDROMORPHONE 1MG/1ML INJ ONE (13:20)
[2020-06-17] MEDS ORDERED: HYDROMORPHONE 1MG/1ML INJ IV ONE (14:00)
[2020-06-17] MEDS ORDERED: METOPROLOL SUCCINATE 25 MG TAB XL PO SCH (17:00)
[2020-06-17] MEDS: CLONIDINE HCL 0.1 MG TAB PO SCH ×2 (17:04→21:07)
[2020-06-17] MEDS: HYDRALAZINE HCL 100 MG TABLET PO SCH (21:07)
[2020-06-17] MEDS: PRAVASTATIN 20 MG TAB PO SCH (21:07)
[2020-06-18] VITALS (8 sets, daily range): BP systolic 112–188; BP diastolic 52–78
[2020-06-18] MEDS: PIPERACILLIN/TAZOBAC 3.375 GM in SODIUM CHLORIDE 0.9% 50ML 50 ML IV SCH ×4 (00:45→17:31)
[2020-06-18] MEDS: LEVALBUTEROL HCL SOLN NEBU 1.25 MG/3 ML NEB INH SCH ×4 (01:05→19:45)
[2020-06-18] MEDS ORDERED: PIPERACILLIN/TAZOBAC 3.375 GM VIAL ONE ×6 (04:33→23:35)
[2020-06-18] MEDS ORDERED: SODIUM CHLORIDE 0.9% 50ML 50 ML ONE ×6 (04:34→23:35)
[2020-06-18] MEDS: METRONIDAZOLE 500MG/NS 100ML 100 ML IV SCH ×3 (05:10→21:05)
[2020-06-18 05:53] LABS: ALBUMIN 1.9 g/dL (3.5-5.0); ALBUMIN/GLOBULIN RATIO 0.7 (0.8-2.0); ANION GAP 11.3 mmol/L (8-16); CALCIUM 8.1 mg/dL (8.4-10.2); CREATININE, SERUM 1.29 mg/dL (0.57-1.11); POTASSIUM 3.3 mmol/L (3.5-5.1)
[2020-06-18] MEDS ORDERED: LEVOTHYROXINE SODIUM 25 MCG TABLET PO SCH (06:00)
[2020-06-18 06:23] LABS: MAGNESIUM 1.9 MG/DL (1.3-2.1); PHOSPHORUS 1.4 MG/DL (2.3-4.7)
[2020-06-18] MEDS: PANTOPRAZOLE SOD 40 MG TABEC PO SCH (07:18)
[2020-06-18] MEDS: LEVOTHYROXINE SODIUM 88 MCG TAB PO SCH (07:18)
[2020-06-18] MEDS: HYDRALAZINE HCL 100 MG TABLET PO SCH ×3 (07:39→22:00)
[2020-06-18] MEDS ORDERED: NON-FORMULARY MEDICATION (Metoprolol Succinate 100 MG) PO SCH (09:00)
[2020-06-18] MEDS: CLONIDINE HCL 0.1 MG TAB PO SCH ×3 (09:02→21:00)
[2020-06-18] MEDS: METOPROLOL SUCCINATE 50 MG TAB XL PO SCH (09:03)
[2020-06-18] MEDS: NIFEDIPINE CR 30 MG TAB PO SCH (09:03)
[2020-06-18] MEDS: BALSAM PERU/CASTOR OIL 60 GM OINT...G. TP SCH (10:47)
[2020-06-18] MEDS ORDERED: POTASSIUM PHOSPHATE 30 MM in SODIUM CHLORIDE 0.9% 250ML 250 ML IV ONE (11:15)
[2020-06-18] MEDS ORDERED: SODIUM CHLORIDE 0.9% 250ML 250 ML ONE (21:05)
[2020-06-18] MEDS: PRAVASTATIN 20 MG TAB PO SCH (21:32)
[2020-06-19] VITALS (7 sets, daily range): BP systolic 127–165; BP diastolic 45–78
[2020-06-19] MEDS: LEVALBUTEROL HCL SOLN NEBU 1.25 MG/3 ML NEB INH SCH ×3 (01:40→13:15)
[2020-06-19] MEDS: LEVOTHYROXINE SODIUM 88 MCG TAB PO SCH (05:09)
[2020-06-19] MEDS: HYDRALAZINE HCL 100 MG TABLET PO SCH ×3 (05:11→22:00)
[2020-06-19] MEDS: METRONIDAZOLE 500MG/NS 100ML 100 ML IV SCH ×3 (05:11→21:00)
[2020-06-19] MEDS ORDERED: PIPERACILLIN/TAZOBAC 3.375 GM VIAL ONE ×3 (05:13→16:57)
[2020-06-19] MEDS ORDERED: SODIUM CHLORIDE 0.9% 50ML 50 ML ONE ×3 (05:13→16:57)
[2020-06-19 05:51] LABS: BASOPHILS % 0.7 % (0.0-1.0); EOSINOPHILS # (AUTO) 0.1 (0.0-0.4); EOSINOPHILS % 1.8 % (0.0-6.0); HEMATOCRIT 29.9 % (34.2-44.1); HEMOGLOBIN 9.6 g/dL (12.0-16.0); LYMPHOCYTES # (AUTO) 0.6 (1.0-3.2); MEAN CORPUSCULAR HEMOGLOBIN 31.5 pg (28-32); MEAN CORPUSCULAR HGB CONC 32.1 g/dL (31-35); MONOCYTES # (AUTO) 0.4 (0.2-0.8); MONOCYTES % 7.4 % (4.4-11.3); NEUTROPHILS # (AUTO) 4.4 (2.1-6.9); NEUTROPHILS % 74.1 % (38.7-80.0); PLATELET COUNT 170 x10e3/uL (140-360); RED BLOOD COUNT 3.05 x10e6/uL (3.6-5.1); RED CELL DISTRIBUTION WIDTH 13.2 % (11.7-14.4)
[2020-06-19 06:07] LABS: ALBUMIN 1.8 g/dL (3.5-5.0); ALBUMIN/GLOBULIN RATIO 0.6 (0.8-2.0); ANION GAP 13.3 mmol/L (8-16); CALCIUM 7.9 mg/dL (8.4-10.2); CREATININE, SERUM 1.02 mg/dL (0.57-1.11); MAGNESIUM 1.8 MG/DL (1.3-2.1); PHOSPHORUS 2.1 MG/DL (2.3-4.7); POTASSIUM 3.3 mmol/L (3.5-5.1)
[2020-06-19] MEDS: PANTOPRAZOLE SOD 40 MG TABEC PO SCH (06:36)
[2020-06-19] MEDS: PIPERACILLIN/TAZOBAC 3.375 GM in SODIUM CHLORIDE 0.9% 50ML 50 ML IV SCH ×5 (06:36→17:25)
[2020-06-19] MEDS: CLONIDINE HCL 0.1 MG TAB PO SCH ×3 (08:31→21:00)
[2020-06-19] MEDS: METOPROLOL SUCCINATE 50 MG TAB XL PO SCH (08:32)
[2020-06-19] MEDS: NIFEDIPINE CR 30 MG TAB PO SCH (08:32)
[2020-06-19] MEDS ORDERED: POTASSIUM CHLORIDE 10MEQ EA PO ONE (10:00)
[2020-06-19] MEDS: BALSAM PERU/CASTOR OIL 60 GM OINT...G. TP SCH (10:30)
[2020-06-19] MEDS ORDERED: ONDANSETRON HCL 4 MG ORAL DISINTEGRATING TAB PO PRN (10:30)
[2020-06-19] MEDS: HYDROCODONE BIT/ACETAMINOPHEN 2.5 MG/108MG PER 5 ML SOLUTION JT PRN ×2 (10:41→22:30)
[2020-06-19] MEDS ORDERED: SODIUM CHLORIDE 0.45% 1,000 ML IV ONE (10:45)
[2020-06-19] MEDS ORDERED: POTASSIUM PHOSPHATE 20 MM in SODIUM CHLORIDE 0.9% 250ML 250 ML IV ONE (11:30)
[2020-06-19] MEDS ORDERED: TYLENOL # 31 EA PO (14:22)
[2020-06-19] MEDS ORDERED: HEPARIN 25,000 UNIT 900 UNIT in DEXTROSE 5% 250ML 250 ML IV SCH (17:30)
[2020-06-19] MEDS ORDERED: HEPARIN SOD (PORCINE) 1000 UNIT/ML SDV IV ONE (17:45)
[2020-06-19 18:43] LABS: INR 1.06; PROTHROMBIN TIME 14.5 seconds (11.9-14.5)
[2020-06-19 18:44] LABS: PARTIAL THROMBOPLASTIN TIME 31.5 seconds (23.8-35.5)
[2020-06-19] MEDS: HEPARIN 25,000 UNIT 900 UNIT in DEXTROSE 5% 250ML 250 ML IV SCH (19:38)
[2020-06-19] MEDS: PRAVASTATIN 20 MG TAB PO SCH (21:00)
[2020-06-20] VITALS (8 sets, daily range): BP systolic 114–168; BP diastolic 43–61
[2020-06-20] MEDS: LEVALBUTEROL HCL SOLN NEBU 1.25 MG/3 ML NEB INH SCH ×4 (00:15→19:30)
[2020-06-20] MEDS ORDERED: SODIUM CHLORIDE 0.9% 50ML 50 ML ONE ×2 (00:51→05:42)
[2020-06-20] MEDS ORDERED: PIPERACILLIN/TAZOBAC 3.375 GM VIAL ONE ×2 (00:51→05:42)
[2020-06-20 02:01] LABS: INR 1.05; PROTHROMBIN TIME 14.4 seconds (11.9-14.5)
[2020-06-20 02:03] LABS: PARTIAL THROMBOPLASTIN TIME 97.7 seconds (23.8-35.5)
[2020-06-20] MEDS: METRONIDAZOLE 500MG/NS 100ML 100 ML IV SCH ×3 (05:00→21:40)
[2020-06-20] MEDS: LEVOTHYROXINE SODIUM 88 MCG TAB PO SCH (05:52)
[2020-06-20] MEDS: PANTOPRAZOLE SOD 40 MG TABEC PO SCH (06:22)
[2020-06-20] MEDS: PIPERACILLIN/TAZOBAC 3.375 GM in SODIUM CHLORIDE 0.9% 50ML 50 ML IV SCH ×6 (06:22→23:54)
[2020-06-20] MEDS: HYDRALAZINE HCL 100 MG TABLET PO SCH ×3 (06:32→21:39)
[2020-06-20 09:03] LABS: HEMATOCRIT 32.6 % (34.2-44.1); HEMOGLOBIN 10.4 g/dL (12.0-16.0); MEAN CORPUSCULAR HEMOGLOBIN 31.5 pg (28-32); MEAN CORPUSCULAR HGB CONC 31.9 g/dL (31-35); MEAN CORPUSCULAR VOLUME 98.8 fL (81-99); PLATELET COUNT 189 x10e3/uL (140-360); RED CELL DISTRIBUTION WIDTH 13.4 % (11.7-14.4)
[2020-06-20 09:13] LABS: INR 1.07; PROTHROMBIN TIME 14.6 seconds (11.9-14.5)
[2020-06-20 09:15] LABS: PARTIAL THROMBOPLASTIN TIME 68.8 seconds (23.8-35.5)
[2020-06-20 09:22] LABS: ALBUMIN 1.7 g/dL (3.5-5.0); ALBUMIN/GLOBULIN RATIO 0.5 (0.8-2.0); ANION GAP 10.7 mmol/L (8-16); CREATININE, SERUM 1.09 mg/dL (0.57-1.11); POTASSIUM 3.7 mmol/L (3.5-5.1)
[2020-06-20 09:54] LABS: BAND NEUTROPHILS % (MANUAL) 1 %; EOSINOPHILS % (MANUAL) 1 % (0-7); LYMPHOCYTES % (MANUAL) 6 % (19-48); MONOCYTES % (MANUAL) 4 % (3.4-9.0); MYELOCYTES % (MANUAL) 2 % (0-0); NEUTROPHILS % (MANUAL) 81 % (40-74); PLATELET ESTIMATE ADEQUATE; PLATELET MORPHOLOGY COMMENT NORMAL; RBC MORPHOLOGY COMMENT NORMAL
[2020-06-20] MEDS: NIFEDIPINE CR 30 MG TAB PO SCH (10:59)
[2020-06-20] MEDS: CLONIDINE HCL 0.1 MG TAB PO SCH ×3 (10:59→21:00)
[2020-06-20] MEDS: BALSAM PERU/CASTOR OIL 60 GM OINT...G. TP SCH (11:00)
[2020-06-20] MEDS: METOPROLOL SUCCINATE 50 MG TAB XL PO SCH (11:00)
[2020-06-20] MEDS: HYDROCODONE BIT/ACETAMINOPHEN 2.5 MG/108MG PER 5 ML SOLUTION JT PRN (11:16)
[2020-06-20 20:36] LABS: INR 1.07; PROTHROMBIN TIME 14.6 seconds (11.9-14.5)
[2020-06-20] MEDS: PRAVASTATIN 20 MG TAB PO SCH (21:39)
[2020-06-20] MEDS: HEPARIN 25,000 UNIT 900 UNIT in DEXTROSE 5% 250ML 250 ML IV SCH (21:40)
[2020-06-21] VITALS (7 sets, daily range): BP systolic 92–143; BP diastolic 41–54
[2020-06-21] MEDS: LEVALBUTEROL HCL SOLN NEBU 1.25 MG/3 ML NEB INH SCH ×4 (00:42→19:23)
[2020-06-21] MEDS: HYDROCODONE BIT/ACETAMINOPHEN 2.5 MG/108MG PER 5 ML SOLUTION JT PRN ×2 (04:45→15:39)
[2020-06-21] MEDS: METRONIDAZOLE 500MG/NS 100ML 100 ML IV SCH ×3 (05:02→21:26)
[2020-06-21] MEDS: LEVOTHYROXINE SODIUM 88 MCG TAB PO SCH (06:11)
[2020-06-21] MEDS: PIPERACILLIN/TAZOBAC 3.375 GM in SODIUM CHLORIDE 0.9% 50ML 50 ML IV SCH ×4 (06:11→23:59)
[2020-06-21] MEDS: HYDRALAZINE HCL 100 MG TABLET PO SCH ×3 (06:11→21:26)
[2020-06-21 06:38] LABS: ALBUMIN 1.7 g/dL (3.5-5.0); ALBUMIN/GLOBULIN RATIO 0.5 (0.8-2.0); ANION GAP 11.6 mmol/L (8-16); CALCIUM 7.8 mg/dL (8.4-10.2); CREATININE, SERUM 1.19 mg/dL (0.57-1.11); MAGNESIUM 1.7 MG/DL (1.3-2.1); PHOSPHORUS 2.7 MG/DL (2.3-4.7); POTASSIUM 3.6 mmol/L (3.5-5.1)
[2020-06-21] MEDS: PANTOPRAZOLE SOD 40 MG TABEC PO SCH (06:44)
[2020-06-21] MEDS: CLONIDINE HCL 0.1 MG TAB PO SCH ×3 (09:49→21:00)
[2020-06-21] MEDS: NIFEDIPINE CR 30 MG TAB PO SCH (09:49)
[2020-06-21] MEDS: BALSAM PERU/CASTOR OIL 60 GM OINT...G. TP SCH (09:50)
[2020-06-21] MEDS: METOPROLOL SUCCINATE 50 MG TAB XL PO SCH (09:50)
[2020-06-21] MEDS ORDERED: FUROSEMIDE INJ 10 MG/ML 4 ML VIAL IV ONE (12:00)
[2020-06-21] MEDS: ALBUMIN 25% 12.5GM 0.25 GM/ML BTL IV SCH ×2 (13:30→18:14)
[2020-06-21 16:20] LABS: PROTHROMBIN TIME 13.8 seconds (11.9-14.5)
[2020-06-21 16:21] LABS: PARTIAL THROMBOPLASTIN TIME 63.8 seconds (23.8-35.5)
[2020-06-21] MEDS: WARFARIN SOD 5 MG TAB PO SCH (17:53)
[2020-06-21] MEDS: PRAVASTATIN 20 MG TAB PO SCH (21:26)
[2020-06-21] MEDS: ENOXAPARIN INJ 80 MG/0.8 ML SYR SC SCH (21:26)
[2020-06-22] VITALS (9 sets, daily range): BP systolic 129–152; BP diastolic 42–56
[2020-06-22] MEDS: HYDROCODONE BIT/ACETAMINOPHEN 2.5 MG/108MG PER 5 ML SOLUTION JT PRN (00:06)
[2020-06-22] MEDS: ALBUMIN 25% 12.5GM 0.25 GM/ML BTL IV SCH ×2 (01:10→06:36)
[2020-06-22] MEDS: LEVALBUTEROL HCL SOLN NEBU 1.25 MG/3 ML NEB INH SCH ×4 (01:45→19:45)
[2020-06-22] MEDS: METRONIDAZOLE 500MG/NS 100ML 100 ML IV SCH ×4 (04:40→22:09)
[2020-06-22] MEDS: PIPERACILLIN/TAZOBAC 3.375 GM in SODIUM CHLORIDE 0.9% 50ML 50 ML IV SCH ×4 (05:46→17:54)
[2020-06-22] MEDS: LEVOTHYROXINE SODIUM 88 MCG TAB PO SCH (06:36)
[2020-06-22] MEDS: HYDRALAZINE HCL 100 MG TABLET PO SCH ×3 (06:36→22:10)
[2020-06-22] MEDS: PANTOPRAZOLE SOD 40 MG TABEC PO SCH (06:50)
[2020-06-22 07:28] LABS: BASOPHILS % 0.5 % (0.0-1.0); EOSINOPHILS # (AUTO) 0.1 (0.0-0.4); EOSINOPHILS % 1.2 % (0.0-6.0); HEMATOCRIT 33.4 % (34.2-44.1); HEMOGLOBIN 10.2 g/dL (12.0-16.0); LYMPHOCYTES # (AUTO) 0.7 (1.0-3.2); LYMPHOCYTES % 9.4 % (18.0-39.1); MEAN CORPUSCULAR HEMOGLOBIN 32.1 pg (28-32); MEAN CORPUSCULAR HGB CONC 30.5 g/dL (31-35); MONOCYTES # (AUTO) 0.5 (0.2-0.8); MONOCYTES % 6.1 % (4.4-11.3); NEUTROPHILS # (AUTO) 5.9 (2.1-6.9); NEUTROPHILS % 77.2 % (38.7-80.0); PLATELET COUNT 156 x10e3/uL (140-360); RED BLOOD COUNT 3.18 x10e6/uL (3.6-5.1); RED CELL DISTRIBUTION WIDTH 13.6 % (11.7-14.4)
[2020-06-22 07:52] LABS: ANION GAP 16.9 mmol/L (8-16); CALCIUM 8.4 mg/dL (8.4-10.2); CREATININE, SERUM 1.37 mg/dL (0.57-1.11); POTASSIUM 3.9 mmol/L (3.5-5.1)
[2020-06-22] MEDS: ENOXAPARIN INJ 80 MG/0.8 ML SYR SC SCH ×2 (08:55→22:10)
[2020-06-22] MEDS: NIFEDIPINE CR 30 MG TAB PO SCH (08:55)
[2020-06-22] MEDS: CLONIDINE HCL 0.1 MG TAB PO SCH ×3 (08:55→22:10)
[2020-06-22] MEDS: METOPROLOL SUCCINATE 50 MG TAB XL PO SCH (08:56)
[2020-06-22] MEDS ORDERED: ENOXAPARIN INJ 80 MG/0.8 ML SYR SC SCH (09:00)
[2020-06-22 10:22] LABS: INR 1.18; PROTHROMBIN TIME 15.8 seconds (11.9-14.5)
[2020-06-22] MEDS ORDERED: SODIUM CHLORIDE 0.9% 250ML 250 ML ONE (12:03)
[2020-06-22] MEDS: WARFARIN SOD 5 MG TAB PO SCH (17:54)
[2020-06-22] MEDS: BALSAM PERU/CASTOR OIL 60 GM OINT...G. TP SCH (18:32)
[2020-06-22] MEDS ORDERED: TEMAZEPAM 7.5 MG CAP PO PRN (20:30)
[2020-06-22] MEDS: PRAVASTATIN 20 MG TAB PO SCH (22:10)
[2020-06-23] VITALS (8 sets, daily range): BP systolic 141–160; BP diastolic 49–67
[2020-06-23] MEDS: PIPERACILLIN/TAZOBAC 3.375 GM in SODIUM CHLORIDE 0.9% 50ML 50 ML IV SCH ×3 (00:20→18:20)
[2020-06-23] MEDS: LEVALBUTEROL HCL SOLN NEBU 1.25 MG/3 ML NEB INH SCH ×2 (01:12→08:07)
[2020-06-23] MEDS: LEVOTHYROXINE SODIUM 88 MCG TAB PO SCH (05:05)
[2020-06-23] MEDS: METRONIDAZOLE 500MG/NS 100ML 100 ML IV SCH (05:05)
[2020-06-23 05:53] LABS: ALBUMIN 2.4 g/dL (3.5-5.0); ALBUMIN/GLOBULIN RATIO 0.8 (0.8-2.0); ALKALINE PHOSPHATASE 29 IU/L (40-150); ANION GAP 11.9 mmol/L (8-16); BLOOD UREA NITROGEN 9 mg/dL (7-26); BUN/CREATININE RATIO 7 (6-25); CALCIUM 8.2 mg/dL (8.4-10.2); CARBON DIOXIDE 27 mmol/L (22-29); CHLORIDE 107 mmol/L (98-107); CREATININE, SERUM 1.22 mg/dL (0.57-1.11); EST GLOMERULAR FILTRATION RATE 42 ML/MIN (60-); GLUCOSE 115 mg/dL (74-118); MAGNESIUM 1.6 MG/DL (1.3-2.1); PHOSPHORUS 2.4 MG/DL (2.3-4.7); SODIUM 143 mmol/L (136-145)
[2020-06-23 05:56] LABS: ALANINE AMINOTRANSFERASE < 6 IU/L (0-55); POTASSIUM 2.9 mmol/L (3.5-5.1)
[2020-06-23 06:12] LABS: INR 1.46; PROTHROMBIN TIME 18.8 seconds (11.9-14.5)
[2020-06-23] MEDS: HYDRALAZINE HCL 100 MG TABLET PO SCH ×2 (06:33→15:38)
[2020-06-23] MEDS: PANTOPRAZOLE SOD 40 MG TABEC PO SCH (06:33)
[2020-06-23] MEDS ORDERED: POTASSIUM CHLORIDE 20 MEQ TAB CR PO ONE (06:45)
[2020-06-23] MEDS: CLONIDINE HCL 0.1 MG TAB PO SCH ×2 (08:51→15:38)
[2020-06-23] MEDS: ENOXAPARIN INJ 80 MG/0.8 ML SYR SC SCH (08:51)
[2020-06-23] MEDS: BALSAM PERU/CASTOR OIL 60 GM OINT...G. TP SCH (08:51)
[2020-06-23] MEDS: NIFEDIPINE CR 30 MG TAB PO SCH (08:51)
[2020-06-23] MEDS: METOPROLOL SUCCINATE 50 MG TAB XL PO SCH (08:51)
[2020-06-23] MEDS ORDERED: POTASSIUM CHLORIDE 10MEQ/100ML 400 ML IV ONE (10:15)
[2020-06-23] MEDS: POTASSIUM CHLORIDE 10MEQ/100ML 100 ML IV SCH ×4 (11:04→16:59)
[2020-06-23] MEDS ORDERED: FUROSEMIDE INJ 10 MG/ML 2 ML VIAL IV ONE (16:15)
[2020-06-23] MEDS ORDERED: POTASSIUM CHLORIDE 10MEQ EA PO ONE (16:15)
[2020-06-23] MEDS: WARFARIN SOD 5 MG TAB PO SCH (17:12)
[2020-06-23] MEDS: HYDROCODONE BIT/ACETAMINOPHEN 2.5 MG/108MG PER 5 ML SOLUTION JT PRN (19:25)
== END 2020-06-23 22:08 | DRG 853 ==
LOC: ER 01:51 → ERHOLD 03:59 → MED/SURG2 05:25 → ICU 17:44 → MED/SURG 06-17 10:29
PROVIDERS: ADMIT Internal Medicine; ATTEND Internal Medicine
PROC: 0DBU0ZZ Excision of Omentum, Open Approach (ICD-10-PCS; 2020-06-13)
PROC: 0DBM0ZZ Excision of Descending Colon, Open Approach (ICD-10-PCS; 2020-06-13)
PROC: 0D1N0Z4 Bypass Sigmoid Colon to Cutaneous, Open Approach (ICD-10-PCS; 2020-06-13)
PROC: 30233N1 Transfusion of Nonautologous Red Blood Cells into Peripheral Vein, Percutaneous Approach (ICD-10-PCS; 2020-06-13)
PROC: 0DBN0ZZ Excision of Sigmoid Colon, Open Approach (ICD-10-PCS; principal; 2020-06-13 13:00)
DX: A41.9 Sepsis, unspecified organism (principal); K65.0 Generalized (acute) peritonitis; N17.0 Acute kidney failure with tubular necrosis; G93.41 Metabolic encephalopathy; K57.20 Diverticulitis of large intestine with perforation and abscess without bleeding; N17.9 Acute kidney failure, unspecified; E87.2 Acidosis; I97.191 Other postprocedural cardiac functional disturbances following other surgery; R65.20 Severe sepsis without septic shock; I12.9 Hypertensive chronic kidney disease with stage 1 through stage 4 chronic kidney disease, or unspecified chronic kidney disease; Z86.73 Personal history of transient ischemic attack (TIA), and cerebral infarction without residual deficits; K21.9 Gastro-esophageal reflux disease without esophagitis; E89.0 Postprocedural hypothyroidism; Z88.1 Allergy status to other antibiotic agents; Z88.5 Allergy status to narcotic agent; K66.0 Peritoneal adhesions (postprocedural) (postinfection); N18.30 Chronic kidney disease, stage 3 unspecified; J44.9 Chronic obstructive pulmonary disease, unspecified; I48.0 Paroxysmal atrial fibrillation; E87.6 Hypokalemia; E83.42 Hypomagnesemia; E83.39 Other disorders of phosphorus metabolism; I35.0 Nonrheumatic aortic (valve) stenosis; D64.9 Anemia, unspecified; I27.21 Secondary pulmonary arterial hypertension; E78.5 Hyperlipidemia, unspecified; L89.151 Pressure ulcer of sacral region, stage 1; B96.20 Unspecified Escherichia coli [E. coli] as the cause of diseases classified elsewhere; B96.1 Klebsiella pneumoniae [K. pneumoniae] as the cause of diseases classified elsewhere; B95.4 Other streptococcus as the cause of diseases classified elsewhere; Z20.822 Contact with and (suspected) exposure to COVID-19
CPT/HCPCS: 36415; 36600; 71045; 74176; 80048; 80053; 81001; 82550; 82553; 82805; 82948; 83605; 83735; 83880; 84100; 84443; 84484; 85007; 85025; 85027; 85610; 85730; 86850; 86900; 86920; 87040; 87071; 87075; 87186; 87205; 88307; 93005; 93306; 93971; 94002; 94003; 94640; 97139; 99251; 99284; J0360; J0610; J1170; J1644; J1650; J1940; J2001; J2405; J2543; J2710; J3010; J3475; J3480; J7030; J7050; J7060; J7121; P9016; Q0162; U0002